=== PATIENT | male | born 1950 | race Caucasian/White ===

== ENCOUNTER → 2016-12-27 | Outpatient (CLI) | payer BC, OTHER ==
[~2016-12-27] MED LIST: ACTUNK PO; ASPEC81 PO; GLCPUNK PO; HMLI7525 SC; LISI5TAB3 PO; MULT-506 PO; SIMV20TA2 PO; [UNRECOGNIZED DRUG - CODE] TOP
--- NOTE | 2016-12-27 17:18 | DIAGNOSTIC IMAGING REPORT ---
LEFT HAND MIN 3 VIEWS ROUTINE CLINICAL HISTORY: Left hand pain status post trauma COMPARISON: None. DISCUSSION: The bony mineralization appears normal. There are no acute fractures. There are mild osteoarthritic changes. No radiopaque foreign bodies are visualized. There is no evidence for soft tissue swelling. IMPRESSION: Mild osteoarthritic change. No acute fractures. No radiopaque foreign bodies are visualized. Electronically signed by: Chuy Ortez M.D. 12/27/2016 5:16 PM Dictated Date/Time: 12/27/2016 5:16 PM
== END | disposition home or self-care (01) ==
LOC: C.RAD1850 16:56
PROVIDERS: ATTEND Nurse Practitioner
DX: S69.92XA Unspecified injury of left wrist, hand and finger(s), initial encounter (principal); X58.XXXA Exposure to other specified factors, initial encounter

== ENCOUNTER → 2017-06-18 | Outpatient (CLI) | payer BC, OTHER ==
[2017-06-18 09:51] LABS: ESTIMATED AVERAGE GLUCOSE 183 mg/dl; HA1C FLAG Normal (Normal)
[2017-06-18 10:04] LABS: ALT/SGPT 26 U/L (12-78); BLOOD UREA NITROGEN 17 mg/dl (7-18); BUN/CREATININE RATIO 16.6 (10-20); CALCIUM 9.1 mg/dl (8.5-10.1); CARBON DIOXIDE 26 mmol/L (21-32); CHLORIDE 107 mmol/L (98-107); CHOLESTEROL 139 mg/dl (0-200); GLUCOSE 121 mg/dl (70-99); POTASSIUM 4.2 mmol/L (3.5-5.1); SODIUM 140 mmol/L (136-145); TRIGLYCERIDES 235 mg/dl (0-150); VERY LOW DENSITY LIPOPROT CALC 47 mg/dl
[2017-06-18 10:13] LABS: ALKALINE PHOSPHATASE 81 U/L (45-117); AST/SGOT 14 U/L (15-37); CHOLESTEROL/HDL RATIO 3.5; HDL CHOLESTEROL 40 mg/dl; LDL CHOLESTEROL CALCULATED 52 mg/dl; THYROID STIMULATING HORMONE 0.039 uIu/ml (0.300-4.500)
[2017-06-18 10:17] LABS: RATIO 104.3 mcg/mg (0-30.0)
--- NOTE | 2017-06-24 09:08 | CODING QUERY MEDICAL NECESSITY ---
SUPPORTING DIAGNOSIS NEEDED Dr. Houston, A supporting diagnosis is required for the test/procedure performed on this patient in order for us to be reimbursed by the patient's insurance. Please provide a supporting diagnosis for the following test/procedure listed below next to the test name along with your signature. *If there is no additional diagnosis for this patient that would support the following test/procedure please document that below next to the test/procedure. Test(s)/Procedure(s) that require a supporting diagnosis: * ([id number]) VITAMIN D ASSAY DIAGNOSIS: * ([id number]) B12 VITAMIN LEVEL DIAGNOSIS: DATE OF SERVICE: 06/18/17 Provider Signature: Date: Thank you Link [facility] Information Management Once completed, please kindly fax back to [phone] For questions please call [phone]
== END | disposition home or self-care (01) ==
LOC: C.LAB1850 06:53
PROVIDERS: ATTEND Internal Medicine Endocrinology, Diabetes & Metabolism
DX: E11.65 Type 2 diabetes mellitus with hyperglycemia (principal); Z79.4 Long term (current) use of insulin

== ENCOUNTER → 2017-10-19 | Outpatient (CLI) | payer OTHER, MEDICARE ==
[2017-10-19 10:03] LABS: ESTIMATED AVERAGE GLUCOSE 249 mg/dl; HA1C FLAG Normal (Normal)
[2017-10-19 10:17] LABS: ALT/SGPT 30 U/L (12-78); AST/SGOT 15 U/L (15-37); BLOOD UREA NITROGEN 21 mg/dl (7-18); BUN/CREATININE RATIO 20.8 (10-20); CALCIUM 8.8 mg/dl (8.5-10.1); CARBON DIOXIDE 26 mmol/L (21-32); CHLORIDE 105 mmol/L (98-107); CREATININE 1.01 mg/dl (0.60-1.40); GLUCOSE 125 mg/dl (70-99); SODIUM 136 mmol/L (136-145)
[2017-10-19 10:23] LABS: ALB/GLOB RATIO 0.9 (0.9-2); ALKALINE PHOSPHATASE 78 U/L (45-117); CHOLESTEROL 144 mg/dl (0-200); CHOLESTEROL/HDL RATIO 3.9; HDL CHOLESTEROL 37 mg/dl; LDL CHOLESTEROL CALCULATED 66 mg/dl; TRIGLYCERIDES 207 mg/dl (0-150); VERY LOW DENSITY LIPOPROT CALC 41 mg/dl
== END | disposition home or self-care (01) ==
LOC: C.LAB 09:14
PROVIDERS: ATTEND Nurse Practitioner
DX: E11.9 Type 2 diabetes mellitus without complications (principal); Z12.5 Encounter for screening for malignant neoplasm of prostate

== ENCOUNTER → 2017-12-23 | Outpatient (CLI) | payer OTHER, MEDICARE ==
--- NOTE | 2017-12-23 12:41 | DIAGNOSTIC IMAGING REPORT ---
CHEST 2 VIEWS ROUTINE CLINICAL HISTORY: J92.0 Pleural plaque with presence of [id number] COMPARISON STUDY: No previous studies for comparison. FINDINGS: The cardiac and mediastinal contours remain stable. There is no failure. There is no focal pulmonary consolidation. Subtle left-sided pleural plaques are suspected. There are no pleural effusions.[ IMPRESSION: Subtle left-sided pleural plaques are suspected. No active disease in the chest. Electronically signed by: Chuy Ortez M.D. 12/23/2017 12:39 PM Dictated Date/Time: 12/23/2017 12:38 PM
== END | disposition home or self-care (01) ==
LOC: C.RAD1850 12:12
PROVIDERS: ATTEND Internal Medicine Pulmonary Disease
DX: J92.0 Pleural plaque with presence of asbestos (principal)

== ENCOUNTER 2018-03-08 16:40 | Emergency (ER) | payer OTHER, MEDICARE ==
[~2018-03-08] VITALS: Ht 172.7 cm; Wt 91.5 kg
[2018-03-08 16:45] VITALS: TEMP 36.7; Ht 172.7 cm; Wt 91.5 kg
--- NOTE | 2018-03-08 17:24 | EMERGENCY ROOM VISIT NOTE ---
ED Visit Note First contact with patient: 16:59 CHIEF COMPLAINT: Tick bite HISTORY OF PRESENT ILLNESS: This 67-year-old male patient noticed a tick embedded in the abdomen approximately 1 hour ago. Patient states that he was working outside this morning, laying on the ground in the grass, he believes this may be when he got exposed to the tick. He is certain take is only been on for a few hours and was not there yesterday. He did not attempt to remove the tick and it is still attached. He has noticed a small amount of redness around the tick bite. He denies any headache, rash, fevers/chills, or joint pain. REVIEW OF SYSTEMS: A complete 6 point review of systems was reviewed with the patient with pertinent positives and negatives as per history of present illness. All else were negative. PMH: The patient is healthy; there is no significant medical or surgical history. SOCIAL HISTORY: Patient lives at home. Non-smoker, occasional alcohol use. PHYSICAL EXAM: Vital Signs: Reviewed Nurse's notes. There is a small zone of inflammation but no ecchymosis or induration around the tick. The skin is otherwise clear. NEUROLOGICAL: Alert and cooperative. Sensory and motor functions grossly intact. EMERGENCY DEPARTMENT COURSE: I examined the patient. He is noted to have an attached tick on his left lower abdomen. There is no evidence of cellulitis. Using a tick twister, the tick was easily and fully removed from the patient's skin and discarded. The patient was provided with the tick twister. The patient was educated regarding signs and symptoms of infection and Lyme disease to monitor for, was encouraged to follow-up with his PCP as needed. Patient was discharged home in stable condition and ambulatory. Current/Historical Medications Scheduled Aspirin Enteric Coated (Ecotrin Or Generic *), 81 MG PO DAILY Fluocinolone Acet 0.025% (Synalar 0.025% *), 1 GM TOP TID PRN Insulin Lispro 75/25 (Humalog Mix 75/25), 47 SC am Insulin Lispro 75/25 (Humalog Mix 75/25), 47 SC pm Lisinopril (Zestril), 5 MG PO DAILY Metformin HCL (Glucophage Unknown Dose), 500 MG PO DAILY Multivitamin (Multivitamin), 1 TAB PO DAILY Pioglitazone (Actos Unknown Dose *), 30 MG PO DAILY Simvastatin (Zocor), 20 MG PO QPM Allergies Coded Allergies: Amoxicillin (Verified Allergy, Intermediate, HIVES, 10/23/13) Clavulanic Acid (Verified Allergy, Intermediate, HIVES, 10/23/13) Uncoded Allergies: PCN (Allergy, Unknown, hives, 09/27/15) Vital Signs Date Time Temp Pulse Resp B/P (MAP) Pulse Ox O2 Delivery O2 Flow Rate FiO2 03/08/18 17:47 69 16 107/69 97 03/08/18 16:45 36.7 75 20 127/76 96 Room Air Departure Information Impression Primary Impression: Tick bite Dispostion Home / Self-Care Condition GOOD Referrals Vonda Chahal, C.R.N.P. (PCP) Patient Instructions ED Bite Tick No Abx Tx, ED Facts Tick, My [facility] Additional Instructions You have been evaluated and treated in the emergency department today for your tick bite. Keep the area clean. Monitor for any signs of infection, including increasing pain, redness, swelling, pus drainage, streaking, fevers or chills. Please follow-up with your primary care provider as needed, especially if you would develop any symptoms of headaches, body aches, joint pain, unusual rash, fever/chills, or for any other concerns. Problem Qualifiers Primary Impression: Tick bite Encounter type: initial encounter Qualified Codes: W57.XXXA - Bitten or stung by nonvenomous insect and other nonvenomous arthropods, initial encounter
[2018-03-08 17:47] VITALS: BP 107/69; PULSE 69; O2SAT 97
== END 2018-03-08 17:48 | disposition home or self-care (01) ==
LOC: C.EDB 16:42 → C.EDD 17:48
DX: S30.861A Insect bite (nonvenomous) of abdominal wall, initial encounter (principal); W57.XXXA Bitten or stung by nonvenomous insect and other nonvenomous arthropods, initial encounter; Y92.017 Garden or yard in single-family (private) house as the place of occurrence of the external cause; Z79.4 Long term (current) use of insulin; Z79.899 Other long term (current) drug therapy; Z88.1 Allergy status to other antibiotic agents; Z88.8 Allergy status to other drugs, medicaments and biological substances; Z88.0 Allergy status to penicillin

== ENCOUNTER → 2018-06-13 | Outpatient (CLI) | payer OTHER, MEDICARE ==
[2018-06-13 12:59] LABS: CREATININE RANDOM URINE 31.9 mg/dl
[2018-06-18 15:37] LABS: TSI <89 % baseline (<140)
== END | disposition home or self-care (01) ==
LOC: C.LAB1850 11:13
PROVIDERS: ATTEND Physician Assistant
DX: R79.89 Other specified abnormal findings of blood chemistry (principal); R80.9 Proteinuria, unspecified

== ENCOUNTER 2019-12-18 17:11 | Observation (INO) ==
--- NOTE | 2019-12-18 17:54 | XRay Report ---
XR chest 1V portable CLINICAL HISTORY: Atypical chest pain COMPARISON STUDY: December 23, 2017 FINDINGS: There are postsurgical changes of midline sternotomy. The heart is borderline enlarged. The re is no failure. There is no focal pulmonary consolidation. There are no pleural effusions. There ar e postsurgical changes involving the right shoulder. Arthritic changes involve both shoulders. There is mild stable left-sided pleural thickening superiorly.[ IMPRESSION: No active disease in the chest. ACT 112: Negative or not required by law. Electronically signed by: Chuy Ortez M.D. 12/18/2019 5:52 PM
[2019-12-18 18:02] LABS: Basophils # (auto) 0.05 K/uL (0-0.2); Basophils % (auto) 0.5 %; Eosinophils # (auto) 0.22 K/uL (0-0.5); Eosinophils % (auto) 2.3 %; Hematocrit (blood only) 32.2 % (42-52); Hemoglobin 10.8 g/dL (14.0-18.0); Immature Granulocytes # (auto) 0.02 K/uL (0.00-0.02); Immature Granulocytes % (auto) 0.2 %; Lymphocytes # (auto) 1.54 K/uL (1.2-3.4); Lymphocytes % (auto) 16.3 %; Mean Corpuscular Hgb Conc 33.5 g/dL (32-36); Mean Corpuscular Volume 83.4 fL (80-100); Mean Platelet Volume 8.8 fL (7.4-10.4); Monocytes # (auto) 0.78 K/uL (0.11-0.59); Monocytes % (auto) 8.2 %; Neutrophils # (auto) 6.85 K/uL (1.4-6.5); Neutrophils % (auto) 72.5 %; Platelet Count 656 K/uL (130-400); RDW Coefficient of Variation 14.6 % (11.5-14.5); RDW Standard Deviation 44.4 fL (36.4-46.3); Red Blood Count 3.86 M/uL (4.7-6.1); White Blood Count 9.46 K/uL (4.8-10.8)
[2019-12-18 18:16] LABS: Partial Thromboplastin Time 26.9 Seconds (21.0-31.0); Prothrombin Time 10.5 Seconds (9.0-12.0)
[2019-12-18 18:19] LABS: Albumin Level 3.4 gm/dl (3.4-5.0); BUN Creatinine Ratio 19.5 (10-20); Calcium 9.6 mg/dl (8.5-10.1); Creatinine Clr Calc Pharmacy 55.4 ml/min; Est GFR (African American) 70.6; Est GFR (Non-African American) 60.9
[2019-12-18 18:24] LABS: Albumin Globulin Ratio 0.8 (0.9-2); Bilirubin,Total 0.3 mg/dl (0.2-1); Globulin 4.4 gm/dl (2.5-4.0); Total Protein 7.8 gm/dl (6.4-8.2); Troponin I 0.025 ng/ml (0-0.045)
--- NOTE | 2019-12-18 18:35 | Ultrasound Report ---
ULTRASOUND RIGHT LOWER EXTREMITY VENOUS CLINICAL HISTORY: Right leg swelling. COMPARISON STUDY: No priors. TECHNIQUE: Real-time, grayscale, and color Doppler sonography of the deep veins of the right lower ex tremity was performed from the inguinal crease to the calf. Compression and augmentation were utilize d. FINDINGS: There is no sonographic evidence of deep venous thrombosis identified in the right lower ex tremity. The common femoral, superficial femoral, and popliteal veins are patent and normally shannan sible. The greater saphenous vein and the profunda femoris vein at the junction with the common femor al vein are clear. The visualized calf veins are patent. IMPRESSION: There is no sonographic evidence of deep venous thrombosis identified in the right lower extremity. ACT 112: Negative or not required by law. Electronically signed by: Frank Sears M.D. 12/18/2019 6:34 PM
--- NOTE | 2019-12-18 20:16 | Emergency Department Note ---
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: chest Radiation: non-radiation Severity: mild and similar to prior episodes (before cardiac cath in November) Pain Consistency: + now resolved Quality: + aching Associated symptoms: + denies other symptoms (chest tightness/pressure, feeling near syncope, ), + chest pain, + shortness of breath ("heavy breathing") and + other (nausea, arndt skin appearance, dizziness, leg pain and swelling); no diaphoresis and no syncope The patient is a 69 year old male with a history of s/p CABG x4 (performed at [facility] 2 weeks ago), cardiac catheterization, pleural plaque due to asbestos exposure, HTN, DM2, who presents to the Emergency Room for a cardiac assessment. The patient began to experience a slight aching chest pain today "not tightness or pressure" associated with shortness of breath "heavy breathing", nausea, and a arndt skin appearance. He admits that the pain did not radiate into his neck or arms. Additionally he reports an episode of dizziness today but did not pass out nor did he feel near syncope. He explains that he experienced similar chest pain in November associated with SOB and dizziness before he had his cardiac catheterization done. The patient also complains of recent right leg pain and swelling. Currently, he states that his chest pain has resolved. He denies diaphoresis and offers no further concerns at this time. Home Medications Home Medications Medication Instructions Recorded Confirmed Type aspirin 81 mg tablet,delayed 81 mg PO QAM 05/26/19 12/18/19 History release cholecalciferol (vitamin D3) 25 1,000 units PO HS cap 05/26/19 12/18/19 History mcg (1,000 unit) capsule multivitamin with iron 1 tab PO QAM 05/26/19 12/18/19 History omega-3 fatty acids 1,000 mg 1,000 mg PO HS 05/26/19 12/18/19 History capsule omeprazole 40 mg capsule,delayed 40 mg PO QAM 05/26/19 12/18/19 History release sumatriptan succinate 100 mg tablet 100 mg PO Q2H PRN 05/26/19 12/18/19 History topiramate 50 mg tablet 50 mg PO BID 05/26/19 12/18/19 History venlafaxine 150 mg 150 mg PO QAM 05/26/19 12/18/19 History capsule,extended release 24 hr insulin NPH-regular 70-30 U-100 See Rx Instructions SQ HS ml 08/07/19 12/18/19 History insulin 100 unit/mL subcutaneous pen metformin 1,000 mg tablet 1,000 mg PO TID 08/07/19 12/18/19 History cyclobenzaprine 30 mg PO DAILY PRN 11/05/19 12/18/19 History methimazole 5 mg PO DAILY 11/05/19 12/18/19 History rosuvastatin 20 mg PO DAILY 11/05/19 12/18/19 History metoprolol tartrate 25 mg tablet 25 mg PO BID #20 tab 11/07/19 12/18/19 Rx nitroglycerin 0.4 mg sublingual 0.4 mg SUBLINGUAL Q5M PRN 30 Days 11/07/19 12/18/19 Rx tablet #25 tab amiodarone 200 mg PO DAILY 12/18/19 12/18/19 History famotidine 20 mg PO BID 12/18/19 12/18/19 History furosemide 40 mg PO DAILY 12/18/19 12/18/19 History insulin glargine [Lantus U-100 30 unit SUBCUT BID 12/18/19 12/18/19 History Insulin] potassium chloride 10 meq PO DAILY 12/18/19 12/18/19 History tamsulosin 0.4 mg PO DAILY 12/18/19 12/18/19 History Allergies Allergy/AdvReac Type Severity Reaction Status Date / Time amoxicillin Allergy Intermediate HIVES Verified 12/18/19 18:58 clavulanic acid Allergy Intermediate HIVES Verified 12/18/19 18:58 Penicillins Allergy Unknown Verified 12/18/19 18:58 PCN Allergy Unknown hives Uncoded 12/18/19 18:58 Past Med/Surg History Medical History Complete tear of left rotator cuff Trigger finger Surgical History History of cardiac cath S/P appendectomy S/P CABG x 4 S/P rotator cuff repair Family History Other Cancer Diabetes Hyperthyroidism Social History Preferred Language: Amharic 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 and A total of 10 systems reviewed and were otherwise negative Physical Exam Vital Signs Vital Signs - 24 hr 12/18/19 17:12 12/18/19 17:16 12/18/19 17:22 Temperature 37.0 C Temperature Source Oral Pulse Rate 78 Pulse Rate from SpO2 Sensor 80 80 Respiratory Rate 21 Respiratory Effort / Characteristics Non-Labored Respiratory Depth Normal Respiratory Pattern Regular Blood Pressure 123/67 123/67 Blood Pressure Mean 85 80 Blood Pressure Position Lying Pulse Oximetry 98 99 97 Oxygen Delivery Method Room Air Sepsis Recent Fever Within 48 Hours No Sepsis New/Unexplained Change in Mental Status No Sepsis Action Taken by Nursing No Action Required 12/18/19 17:30 12/18/19 18:00 12/18/19 18:34 Temperature Temperature Source Pulse Rate 79 81 83 Pulse Rate from SpO2 Sensor 79 83 Respiratory Rate 17 16 Respiratory Effort / Characteristics Respiratory Depth Respiratory Pattern Blood Pressure Blood Pressure Mean Blood Pressure Position Pulse Oximetry 96 96 Oxygen Delivery Method Sepsis Recent Fever Within 48 Hours Sepsis New/Unexplained Change in Mental Status Sepsis Action Taken by Nursing 12/18/19 19:18 Temperature Temperature Source Pulse Rate 79 Pulse Rate from SpO2 Sensor Respiratory Rate 18 Respiratory Effort / Characteristics Respiratory Depth Respiratory Pattern Blood Pressure 101/66 Blood Pressure Mean 77 Blood Pressure Position Pulse Oximetry 9 L Oxygen Delivery Method Room Air Sepsis Recent Fever Within 48 Hours Sepsis New/Unexplained Change in Mental Status Sepsis Action Taken by Nursing Constitutional: Vital signs reviewed and showed normotension. Eyes: Pupils are equal round reactive to light. Conjunctiva are noninjected. ENT: Pharynx is clear without erythema or exudate. Mucous membranes are moist. Neck supple without meningeal signs. Respiratory: Clear to auscultation bilaterally. Breath sounds are equal bi laterally. Cardiovascular: Regular rate and rhythm. No rubs or gallops. GI: Soft, nondistended and nontender. Bowel sounds are present. Musculoskeletal: Edema to the RLE with mild tenderness. No infection to the incision. Integumentary: No cyanosis. Neurological: The patient is awake and alert. No focal deficits. Psychiatric: Normal affect. Course Course 172: Past medical records reviewed. The patient was evaluated in room B02. A complete history and physical exam was performed. 175: The patient's labs were sent. 184: I checked on the patient and he is agreeable to hospitalization and does not have any recurrent chest pain. I will page Dr. Swanson, [facility]. 1926: I spoke with Dr. Swanson who will further evaluate the patient. Administered Medications Medical Decision Making Differential Diagnosis Differential diagnosis includes but is not limited to graft occlusion, MO, Ceferino's syndrome, pneumonia, PE, amongst others considered. Medical Records Attestation: I reviewed the patient's medical records. The patient had a cardiac catheterization performed on 11/06/19 and had severe multi vessel CAD. Home Medications Current Medication List: was personally reviewed by me Laboratory Data Attestation: I reviewed the patient's lab results. Result diagrams: 12/18/19 17:54 12/18/19 17:54 Lab Results 12/18/19 12/18/19 12/18/19 Range/Units 17:54 17:54 17:54 WBC 9.46 (4.8-10.8) K/uL RBC 3.86 L (4.7-6.1) M/uL Hgb 10.8 L (14.0-18.0) g/dL Hct 32.2 L (42-52) % MCV 83.4 (80-100) fL MCH 28.0 (25-34) pg MCHC 33.5 (32-36) g/dL RDW Std Deviation 44.4 (36.4-46.3) fL RDW Coeff of Kate 14.6 H (11.5-14.5) % Plt Count 656 H (130-400) K/uL MPV 8.8 (7.4-10.4) fL Immature Gran % (Auto) 0.2 % Neut % (Auto) 72.5 % Lymph % (Auto) 16.3 % [place] % (Auto) 8.2 % Eos % (Auto) 2.3 % Baso % (Auto) 0.5 % Immature Gran # (Auto) 0.02 (0.00-0.02) K/uL Neut # (Auto) 6.85 H (1.4-6.5) K/uL Lymph # (Auto) 1.54 (1.2-3.4) K/uL [place] # (Auto) 0.78 H (0.11-0.59) K/uL Eos # (Auto) 0.22 (0-0.5) K/uL Baso # (Auto) 0.05 (0-0.2) K/uL PT 10.5 (9.0-12.0) Seconds INR 1.0 (0.9-1.1) APTT 26.9 (21.0-31.0) Seconds PTT Ratio 1.0 Sodium 137 (136-145) mmol/L Potassium 4.0 (3.5-5.1) mmol/L Chloride 105 (98-107) mmol/L Carbon Dioxide 22 (21-32) mmol/L Anion Gap 10.0 (3-11) BUN 23 H (7-18) mg/dl Creatinine 1.20 (0.6-1.4) mg/dl Est Cr Clr Drug Dosing 55.4 ml/min Est GFR ( Amer) 70.6 Est GFR (Non-Af Amer) 60.9 BUN/Creatinine Ratio 19.5 (10-20) Glucose 208 H (70-99) mg/dl Calcium 9.6 (8.5-10.1) mg/dl Total Bilirubin 0.3 (0.2-1) mg/dl AST 23 (15-37) U/L ALT 23 (12-78) U/L Alkaline Phosphatase 117 (45-117) U/L Troponin I 0.025 (0-0.045) ng/ml Total Protein 7.8 (6.4-8.2) gm/dl Albumin 3.4 (3.4-5.0) gm/dl Globulin 4.4 H (2.5-4.0) gm/dl Albumin/Globulin Ratio 0.8 L (0.9-2) Imaging Data Radiologist's Impression: Radiology results as stated below per my review and the radiologist's interpretation: XR chest 1V portable CLINICAL HISTORY: Atypical chest pain COMPARISON STUDY: December 23, 2017 FINDINGS: There are postsurgical changes of midline sternotomy. The heart is bor derline enlarged. There is no failure. There is no focal pulmonary consolidation. There are no pleural effusions. There are postsurgical changes involving the right shoulder. Arthritic changes involve both shoulders. There is mild stable left-sided pleural thickening superiorly.[ IMPRESSION: No active disease in the chest. ACT 112: Negative or not required by law. Electronically signed by: Chuy Ortez M.D. 12/18/2019 5:52 PM ULTRASOUND RIGHT LOWER EXTREMITY VENOUS CLINICAL HISTORY: Right leg swelling. COMPARISON STUDY: No priors. TECHNIQUE: Real-time, grayscale, and color Doppler sonography of the deep veins of the right lower extremity was performed from the inguinal crease to the calf. Compression and augmentation were utilized. FINDINGS: There is no sonographic evidence of deep venous thrombosis identified in the right lower extremity. The common femoral, superficial femoral, and popliteal veins are patent and normally compressible. The greater saphenous vein and the profunda femoris vein at the junction with the common femoral vein are clear. The visualized calf veins are patent. IMPRESSION: There is no sonographic evidence of deep venous thrombosis identified in the right lower extremity. ACT 112: Negative or not required by law. Electronically signed by: Frank Sears M.D. 12/18/2019 6:34 PM ECG Data Attestation: I personally reviewed and interpreted this ECG as follows: Indication: + chest pain Rate (beats per minute): 77 Rhythm: + normal sinus ECG ST segments: + ST elevation (septally, concerning for Wellen's sign) and + T-wave inversions (leads 1 and AVL) Comparison ECG Date: from (05/26/19) Change: the following changes noted (changes are new) Additional Comments: REPEAT EKG performed in the ED today: * Normal sinus rhythm at 78 bpm * Persistent TWI in 1 and AVL as wel as V1, v2, and V3 concerning for Wellen's sign Blood Pressure Blood Pressure Findings: Normal blood pressure Blood Pressure Disposition: further management by hospitalist [facility] Narrative I did evaluate the patient as noted above. The patient is presenting with chest pain and pallor while bringing his into the emergency department for assessment. He was advised to check in. He recently had quadruple bypass. IV access was established. The patient was placed on a continuous engine monitor. I did order and personally review the patient's 12-lead EKG as described above. This twelve-lead EKG is concerning for T wave inversions in the high lateral leads as well as a septal/anterior leads. I did repeat this twelve-lead EKG which showed similar findings as noted above. The patient is currently chest pain-free. I did order and personally reviewed the images of the patient's chest x-ray as described above. His chest x-ray does not show any signs of pneumonia. I did order and review the patient's blood work as noted in the electronic medical record. The white count is not elevated. He is anemic. Troponin is negative. He does have hyperglycemia. I did order a Doppler ultrasound of the right lower extremity.. I did review the images myself as well as the radiology report as described above. There is no evidence of DVT. I did discuss the test results with the patient. On reexamination patient is asymptomatic. I did recommend hospitalization for further evaluation and repeat cardiac biomarkers. I did discuss the case with the hospitalist and showcase maker. Impression & Plan Acute chest pain, Abnormal EKG, Right leg swelling, Anemia, Acute hyperglycemia Discharge Plan Visit Data Chief Complaint: Cardiac Assessment Stated Complaint: CARDIAC ED Provider: Celso Vitale Discharge Problem: Acute chest pain, Abnormal EKG, Right leg swelling, Anemia, Acute hyperglycemia Patient Disposition: Being Evaluated by Hospitalist Forms Stand Alone Forms: My [facility] Prescriptions Prescriptions: No Action metoprolol tartrate 25 mg tablet 25 mg PO BID Qty: 20 RF: 0 nitroglycerin [Nitrostat] 0.4 mg tablet, sublingual 0.4 mg sublingual Q5M PRN (Reason: chest pain) 30 Days Qty: 25 RF: 0 aspirin [Adult Aspirin Regimen] 81 mg tablet,delayed release (DR/EC) 81 mg PO QAM RF: 0 venlafaxine [Effexor XR] 150 mg capsule,extended release 24hr 150 mg PO QAM RF: 0 omega-3 fatty acids [Fish Oil Concentrate] 1,000 mg capsule 1,000 mg PO HS RF: 0 multivitamin with iron tablet 1 tab PO QAM RF: 0 omeprazole 40 mg capsule,delayed release(DR/EC) 40 mg PO QAM RF: 0 sumatriptan succinate 100 mg tablet 100 mg PO Q2H PRN (Reason: Migraine Headache) RF: 0 topiramate 50 mg tablet 50 mg PO BID RF: 0 cholecalciferol (vitamin D3) 1,000 unit capsule 1,000 units PO HS RF: 0 insulin NPH and regular human 100 unit/mL (70-30) insulin pen See Rx Instructions SQ HS RF: 0 metformin 1,000 mg tablet 1,000 mg PO TID RF: 0 methimazole 5 mg Tablet 5 mg PO DAILY RF: 0 rosuvastatin 20 mg Tablet 20 mg PO DAILY RF: 0 cyclobenzaprine 30 mg Capsule,Extended Release 24hr 30 mg PO DAILY PRN (Reason: Muscle Spasm) RF: 0 furosemide 40 mg tablet 40 mg PO DAILY RF: 0 amiodarone 200 mg tablet 200 mg PO DAILY RF: 0 famotidine 20 mg tablet 20 mg PO BID RF: 0 tamsulosin 0.4 mg capsule 0.4 mg PO DAILY RF: 0 potassium chloride 10 mEq tablet,ER particles/crystals 10 meq PO DAILY RF: 0 Lantus U-100 Insulin 100 unit/mL solution 30 unit SUBCUT BID RF: 0 Referrals Referrals: Vonda Chahal CRNP [Primary Care Provider] - Discharge Problem: Anemia Qualifiers: Anemia type: unspecified type Qualified Code(s): D64.9 - Anemia, unspecified The scribe's documentation has been prepared under my direction and personally reviewed by me in its entirety. I confirm that the note above accurately reflects all work, treatment, procedures, and medical decision making performed by me.
--- NOTE | 2019-12-18 20:33 | History & Physical Report ---
Date of Service December 18, 2019 Assessment & Plan (1) Acute chest pain: Mr. Mccarthy is a 69yo male with a Hx of CABGx4 discharged 2 weeks ago, stable angina, HTN, HLD, Hyperthyroidism, GERD, Diabetes and Anxiety/Depression who presented with chest pain and SOB and was admitted for AC S rule-out. Chest pain/ACS rule out -Pt with chest pain and SOB after had syncopal episode this evening -Currently chest pain free, required no medications -EKG on admission with inverted t waves in lateral leads, NSR qtc 420 -Trops negative x1, will trend q6h -Echo ordered; last from chart review is 2015 with noted EF-50-55%, E/A reversal, normal chamber sizes and trace MR and TR, no signifcant aortic stenosis -continue home nitroglycerin 0.4mg tab PRN -will continue to monitor on telemetry overnight Hx of CABGx4 -Pt with quadruple bypass surgery on Dec 02 at [facility], sobeida christensen -Recently discharged for about 2 weeks now -continue home metoprolol tartrate 25mg BID -continue home amiodarone 200mg daily -continue home aspirin -continue home rosuvastatin 20mg daily -continue home furosemide 40mg daily Right Leg Swelling -Pt with minor swelling at right leg graft sight, no significant erythema or warmth -Denies fevers, chills, or noted drainage from surgical site, WBC normal -No concern currently for infection -Doppler US of right lower extremity with no evidence of DVT -inpt wound nurse consult placed DMII -hgbA1c pending; last noted in chart from 12/2018 was 9.2 -holding home insulin and metformin 1000mg TID -ISS while hospitalized HTN -continue home metoprolol 25mg BID HLD -continue home rosuvastatin 20mg daily Hyperthyroidism -continue home methimazole 5mg daily GERD -continue home omeprazole 40mg and famotidine 20mg BID Migraines -continue home sumatriptan 100mg and topiramate 50mg BID Anxiety/Depression -continue home venlafaxine 150mg daily Muscle Spasms -continue home cyclobenzaprine 30mg daily PRN BPH -continue home tamsulosin 0.4mg daily FEN/GI: Heart healthy, low sodium DVT prophylaxis: Lovenox SQ CODE STATUS: full Dispo: Obs on PCU/tele History of Present Illness Primary Care Provider: JANKI Nunez Mr. Mccarthy is a 69yo male with a Hx of CABGx4 discharged 2 weeks ago, stable angina, HTN, HLD, Hyperthyroidism, GERD, Diabetes and Anxiety/Depression who presented with chest pain and SOB and was admitted for ACS rule-out. Pt sates he was at [place] this evening with his when she had a hypoglycemic episode and fainted. He drove himself to the ED after she was transported there by ambulance, and upon arrival was noted to be pale while holding his chest and breathing deeply. States he had nonradiating pain that he describes as discomfort associated with SOB, headache and an episode of dizziness prior today. His chest pain has since resolved. Of note he had quadruple bypass surgery on dec 02 at [facility] and was discharged about 2 weeks ago. Denies changes to vision, cough, runny nose, sore throat, palpitations, abdominal pain, diarrhea or constipation, swelling in hands or numbness or tingling anywhere. Does say his right leg is swollen and painful at the graft site. Allergies Allergy/AdvReac Type Severity Reaction Status Date / Time amoxicillin Allergy Intermediate HIVES Verified 12/18/19 18:58 clavulanic acid Allergy Intermediate HIVES Verified 12/18/19 18:58 Penicillins Allergy Unknown Verified 12/18/19 18:58 Home Medications Home Medications Medication Instructions Recorded Confirmed Type aspirin 81 mg tablet,delayed 81 mg PO QAM 05/26/19 12/18/19 History release cholecalciferol (vitamin D3) 25 1,000 units PO HS cap 05/26/19 12/18/19 History mcg (1,000 unit) capsule multivitamin with iron 1 tab PO QAM 05/26/19 12/18/19 History omega-3 fatty acids 1,000 mg 1,000 mg PO HS 05/26/19 12/18/19 History capsule omeprazole 40 mg capsule,delayed 40 mg PO QAM 05/26/19 12/18/19 History release sumatriptan succinate 100 mg tablet 100 mg PO Q2H PRN 05/26/19 12/18/19 History topiramate 50 mg tablet 50 mg PO BID 05/26/19 12/18/19 History venlafaxine 150 mg 150 mg PO QAM 05/26/19 12/18/19 History capsule,extended release 24 hr insulin NPH-regular 70-30 U-100 See Rx Instructions SQ HS ml 08/07/19 12/18/19 History insulin 100 unit/mL subcutaneous pen metformin 1,000 mg tablet 1,000 mg PO TID 08/07/19 12/18/19 History cyclobenzaprine 30 mg PO DAILY PRN 11/05/19 12/18/19 History methimazole 5 mg PO DAILY 11/05/19 12/18/19 History rosuvastatin 20 mg PO DAILY 11/05/19 12/18/19 History metoprolol tartrate 25 mg tablet 25 mg PO BID #20 tab 11/07/19 12/18/19 Rx nitroglycerin 0.4 mg sublingual 0.4 mg SUBLINGUAL Q5M PRN 30 Days 11/07/19 12/18/19 Rx tablet #25 tab amiodarone 200 mg PO DAILY 12/18/19 12/18/19 History famotidine 20 mg PO BID 12/18/19 12/18/19 History furosemide 40 mg PO DAILY 12/18/19 12/18/19 History insulin glargine [Lantus U-100 30 unit SUBCUT BID 12/18/19 12/18/19 History Insulin] potassium chloride 10 meq PO DAILY 12/18/19 12/18/19 History tamsulosin 0.4 mg PO DAILY 12/18/19 12/18/19 History Past Med/Surg History Medical History Complete tear of left rotator cuff Trigger finger Surgical History History of cardiac cath S/P appendectomy S/P CABG x 4 S/P rotator cuff repair Family History Other Cancer Diabetes Hyperthyroidism Social History Preferred Language: Maori Communication Ability: Effective Emergency Room Rn Required: No Beliefs That Will Affect Care: None marital status: Current Living Situation: Spouse current occupational status: retired Other Information That Helps Us Care for You: No Feels Safe at Home: Yes Safety Concerns: Feels Safe At This Time Smoking Status: Former smoker Hx Alcohol Use: Yes Alcohol type: hard liquor Hx Substance Use: No Physical Activity Frequency: Does not Exercise Review of Systems Review of Systems: All systems reviewed & are unremarkable except as noted in HPI & below Constitutional: no fever, no chills and no sweats Eyes: no worsening vision Ear, Nose, Mouth, Throat: no nasal discharge and no sore throat Respiratory: no cough and no dyspnea (at time of exam) Cardiovascular: no chest pain (at time of exam) and no palpitations Gastrointestinal: no abdominal pain, no constipation and no diarrhea/loose stools Genitourinary: no dysuria Musculoskeletal: no body aches Neurologic: + dizziness and + headache(s); no syncope Psychiatric: + depression and + anxiety Allergy / Immunological: no cough Physical Exam Physical Exam: General: Alert, oriented. No acute distress, resting comfortably Skin: surgical scars noted on chest and right leg Psych: Appropriate mood and affect Neuro: No gross deficits HEENT: NC/AT, PERRLA, EOMI, oropharynx moist. Chest: Nontender to palpation. CV: RRR, Normal s1, s2. Blowing murmur appreciated Resp: Breath sounds with faint crackles at right base, no increased effort of breathing. Abdomen: Soft, nontender, nondistended. No guarding. Extremities: Trace edema in lower extremities bilaterally, DP palpated on right foot. Right inner leg and thigh with long surgical scar, dried blood, no noted pus drainage, no redness, no warmth. Results & Data Vital Signs (Past 12 Hours) Vital Signs Temp Pulse Resp BP Pulse Ox 12/18/19 19:18 79 18 101/66 9 L 12/18/19 18:34 83 16 96 12/18/19 18:00 81 12/18/19 17:30 79 17 96 12/18/19 17:22 97 12/18/19 17:16 123/67 99 12/18/19 17:12 37.0 C 78 21 123/67 98 Supervising Physician Co-Signing Physician Notes Patient was seen and examined by me personally. I reviewed the chart, the orders and discussed the case in detail with Dr. Sofie Sosa MD . I read this H&P and agree with its contents to entirety. Resident Activity Tracking Resident Involvement: Resident Care Provided Care Provided: [facility]
[2019-12-18] MEDS ORDERED: OMEGA-3 (PURIFIED FISH OIL) 1 GM CAP PO SCH (21:30)
[2019-12-18] MEDS ORDERED: GLUCAGON FOR INJ 1 MG VIAL SQ PRN (21:35)
[2019-12-18] MEDS ORDERED: SUMAtriptan succinate 100 MG TAB PO PRN (21:35)
[2019-12-18] MEDS ORDERED: GLUCOSE 10 TABS/TUBE PO PRN (21:35)
[2019-12-18] MEDS ORDERED: GLUCOSE 40% GEL 15 GM TUBE PO PRN (21:35)
[2019-12-18] MEDS ORDERED: DEXTROSE 50% 50 ML SYRINGE IV PRN (21:35)
[2019-12-18] MEDS ORDERED: CARBOHYDRATES FOR HYPOGLYCEMIA PO PRN (21:35)
[2019-12-18] MEDS ORDERED: CHOLECALCIFEROL 1,000 UNITS 25 MCG TAB PO SCH (21:35)
[2019-12-18] MEDS ORDERED: NITROGLYCERIN SL 0.4 MG/TAB TAB SL PRN (21:35)
[2019-12-18] MEDS ORDERED: CYCLOBENZAPRINE HCL 10 MG TAB PO PRN (21:40)
[2019-12-18 21:57] LABS: Basophils # (auto) 0.05 K/uL (0-0.2); Basophils % (auto) 0.6 %; Eosinophils # (auto) 0.22 K/uL (0-0.5); Eosinophils % (auto) 2.8 %; Hematocrit (blood only) 29.8 % (42-52); Immature Granulocytes # (auto) 0.01 K/uL (0.00-0.02); Immature Granulocytes % (auto) 0.1 %; Lymphocytes # (auto) 1.89 K/uL (1.2-3.4); Lymphocytes % (auto) 23.9 %; Mean Corpuscular Hemoglobin 27.5 pg (25-34); Mean Corpuscular Hgb Conc 33.6 g/dL (32-36); Mean Corpuscular Volume 82.1 fL (80-100); Mean Platelet Volume 8.2 fL (7.4-10.4); Monocytes # (auto) 0.58 K/uL (0.11-0.59); Monocytes % (auto) 7.3 %; Neutrophils # (auto) 5.16 K/uL (1.4-6.5); Neutrophils % (auto) 65.3 %; Platelet Count 560 K/uL (130-400); RDW Coefficient of Variation 14.3 % (11.5-14.5); RDW Standard Deviation 43.3 fL (36.4-46.3); Red Blood Count 3.63 M/uL (4.7-6.1); White Blood Count 7.91 K/uL (4.8-10.8)
[2019-12-18] MEDS ORDERED: ENOXAPARIN INJ 40 MG/0.4 ML SYR SQ SCH (22:15)
[2019-12-18 22:18] LABS: BUN Creatinine Ratio 23.9 (10-20); Calcium 9.2 mg/dl (8.5-10.1); Creatinine Clr Calc Pharmacy 69.3 ml/min; Est GFR (African American) 81.1; Potassium 3.4 mmol/L (3.5-5.1); Troponin I 0.02 ng/ml (0-0.045)
[2019-12-18] MEDS: FAMOTIDINE 20 MG TAB PO SCH (22:40)
[2019-12-18] MEDS: METOPROLOL TARTRATE 25 MG TAB PO SCH (22:42)
[2019-12-18] MEDS: TOPIRAMATE 50 MG TAB PO SCH (22:42)
[2019-12-18] MEDS: INSULIN ASPART 100 UNITS/ML 3 ML PEN SC SCH (23:18)
--- NOTE | 2019-12-19 01:29 | Billing Data ---
Date of Service December 18, 2019 Coding Level of Care Code 89710 OBS Care - Level 3
[2019-12-19 06:43] LABS: Basophils # (auto) 0.06 K/uL (0-0.2); Basophils % (auto) 0.9 %; Eosinophils % (auto) 4.3 %; Hematocrit (blood only) 30.5 % (42-52); Hemoglobin 9.7 g/dL (14.0-18.0); Immature Granulocytes # (auto) 0.02 K/uL (0.00-0.02); Immature Granulocytes % (auto) 0.3 %; Lymphocytes # (auto) 1.46 K/uL (1.2-3.4); Lymphocytes % (auto) 20.8 %; Mean Corpuscular Hemoglobin 26.9 pg (25-34); Mean Corpuscular Hgb Conc 31.8 g/dL (32-36); Mean Corpuscular Volume 84.7 fL (80-100); Mean Platelet Volume 8.8 fL (7.4-10.4); Monocytes # (auto) 0.64 K/uL (0.11-0.59); Monocytes % (auto) 9.1 %; Neutrophils # (auto) 4.55 K/uL (1.4-6.5); Neutrophils % (auto) 64.6 %; Platelet Count 565 K/uL (130-400); RDW Coefficient of Variation 14.4 % (11.5-14.5); RDW Standard Deviation 44.3 fL (36.4-46.3); White Blood Count 7.03 K/uL (4.8-10.8)
[2019-12-19 06:53] LABS: Estimated Average Glucose 197 mg/dl; Hemoglobin A1C 8.5 % (4.5-5.6)
[2019-12-19 07:13] LABS: BUN Creatinine Ratio 22.4 (10-20); Calcium 9.2 mg/dl (8.5-10.1); Est GFR (African American) 85.9; Est GFR (Non-African American) 74.1; Potassium 3.5 mmol/L (3.5-5.1)
[2019-12-19] MEDS: TOPIRAMATE 50 MG TAB PO SCH (07:52)
[2019-12-19] MEDS: INSULIN ASPART 100 UNITS/ML 3 ML PEN SC SCH ×2 (07:53→12:06)
[2019-12-19] MEDS: FAMOTIDINE 20 MG TAB PO SCH (08:09)
[2019-12-19] MEDS ORDERED: ASPIRIN 81 MG ECTAB PO SCH (09:00)
[2019-12-19] MEDS ORDERED: TAMSULOSIN HCL 0.4 MG CAP PO SCH (09:00)
[2019-12-19] MEDS ORDERED: VENLAFAXINE HCL XR 150 MG CAPXR PO SCH (09:00)
[2019-12-19] MEDS ORDERED: POTASSIUM CHLORIDE 10 MEQ TABCR PO SCH (09:00)
[2019-12-19] MEDS ORDERED: FUROSEMIDE 40 MG TAB PO SCH (09:00)
[2019-12-19] MEDS ORDERED: AMIODARONE 200 MG TAB PO SCH (09:00)
[2019-12-19] MEDS ORDERED: PANTOprazole 40 MG TAB PO SCH (09:00)
[2019-12-19] MEDS ORDERED: methIMAzole 5 MG TABLET PO SCH (09:00)
[2019-12-19] MEDS ORDERED: CEROVITE ADV FORMULA TAB PO SCH (09:00)
[2019-12-19] MEDS ORDERED: ROSUVASTATIN CALCIUM 20 MG TAB PO SCH (09:00)
[2019-12-19 12:04] LABS: Hematocrit (blood only) 31.4 % (42-52); Hemoglobin 10.2 g/dL (14.0-18.0)
[2019-12-19] MEDS: METOPROLOL TARTRATE 25 MG TAB PO SCH (12:06)
--- NOTE | 2019-12-19 15:36 | Discharge Summary ---
Date of Service December 19, 2019 Admission HPI Per Admitting Provider Mr. Mccarthy is a 69yo male with a Hx of CABGx4 discharged 2 weeks ago, stable angina, HTN, HLD, Hyperthyroidism, GERD, Diabetes and Anxiety/Depression who presented with chest pain and SOB and was admitted for ACS rule-out. Pt sates he was at [place] this evening with his when she had a hypoglycemic episode and fainted. He drove himself to the ED after she was transported there by ambulance, and upon arrival was noted to be pale while holding his chest and breathing deeply. States he had nonradiating pain that he describes as discomfort associated with SOB, headache and an episode of dizziness prior today. His chest pain has since resolved. Of note he had quadruple bypass surgery on dec 02 at [facility] and was discharged about 2 weeks ago. Denies changes to vision, cough, runny nose, sore throat, palpitations, abdominal pain, diarrhea or constipation, swelling in hands or numbness or tingling anywhere. Does say his right leg is swollen and painful at the graft site. Admission Exam Per Admitting Provider General: Alert, oriented. No acute distress, resting comfortably Skin: surgical scars noted on chest and right leg Psych: Appropriate mood and affect Neuro: No gross deficits HEENT: NC/AT, PERRLA, EOMI, oropharynx moist. Chest: Nontender to palpation. CV: RRR, Normal s1, s2. Blowing murmur appreciated Resp: Breath sounds with faint crackles at right base, no increased effort of breathing. Abdomen: Soft, nontender, nondistended. No guarding. Extremities: Trace edema in lower extremities bilaterally, DP palpated on right foot. Right inner leg and thigh with long surgical scar, dried blood, no noted pus drainage, no redness, no warmth. Principal Diagnosis chest pain Discharge Exam Constitutional WD/WN, vitals as above Eyes + anicteric sclerae ENMT external ear and nose normal, oropharynx normal Neck normal visual inspection and trachea midline Respiratory normal respiratory effort, lungs clear to auscultation Cardiovascular Rate/Rhythm: regular rate and regular rhythm Heart Sounds: normal S1, normal S2 and + murmur (systolic ejection) Gastrointestinal (Abdomen) normal bowel sounds, soft, nontender, no hepatosplenomegaly Skin no rashes, warm and dry On R LE there is a healing incision consistent with graft site of recent CABG. Incision is tender; surrounding ecchymosis. No erythema or warmth. No open areas. + hematoma palpated on inner thigh Psychiatric A+Ox3, euthymic affect Orientation: cooperative Discharge Data Allergies Allergy/AdvReac Type Severity Reaction Status Date / Time amoxicillin Allergy Intermediate HIVES Verified 12/18/19 18:58 clavulanic acid Allergy Intermediate HIVES Verified 12/18/19 18:58 Penicillins Allergy Unknown Verified 12/18/19 18:58 Consultations 12/18/19 19:10 ED Decision to Admit Stat Ordered Studies 12/18/19 17:24 US venous doppler LE RT Stat Hospital Course (1) Acute chest pain: Mr. Mccarthy is a 69yo male who is status post 4 vessel CABG 2.5 weeks ago at [facility] who presented to [facility] with chest pain and SOB after his collapsed while they were out shopping. He was admitted for ACS rule-out. Chest pain/ACS rule out Chest pain spontaneously resolved without any intervention shortly after arriving at hospital. Troponins negative x 2. EKG with inverted T waves in lateral leads, otherwise without signs of acute ischemia. Echocardiogram was obtained which showed EF 55-60%, normal LV systolic function, no wall motion abnormalities, moderate aortic sclerosis, no significant aortic stenosis. He will be seeing his compliance aide at the [facility] on 12/23/19 and his clinical director from [facility] on 01/05/2020. Hx of recent 4 vessel CABG Pt with quadruple bypass surgery on Dec 02 at [facility]. We have asked him to reduce his metoprolol tartrate from 25mg BID to 12.5mg BID due to relative hypotension while in the hospital. Otherwise he should continue the following regimen: amiodarone 200mg daily, ASA 81mg, daily, rosuvastatin 20mg daily, furosemide 40mg daily. Right Leg Swelling Pt with minor swelling at right lower leg, consistent with graft site of recent CABG procedure. Doppler US of right lower extremity showed no evidence of DVT. Hospital team had no concerns for infection as there was o significant erythema, warmth, or open areas and WBC normal. Small hematoma was felt on medial aspect of R thigh- recommend he apply warm compresses for resolution. DMII hgbA1c 8.5 on admission, down from 9.2 in 12/2018. Advised patient to continue home regimen of Lantus insulin 30 units BID, + additional sliding scale as outlined by [facility] providers. He should also continue metformin 1000mg TID HTN -patient was hypotensive throughout hospital stay. continue metoprolol 12.5 mg BID HLD -continue home rosuvastatin 20mg daily Hyperthyroidism -continue home methimazole 5mg daily GERD -continue home omeprazole 40mg and famotidine 20mg BID Migraines -continue home sumatriptan 100mg and topiramate 50mg BID Anxiety/Depression -continue home venlafaxine 150mg daily Muscle Spasms -continue home cyclobenzaprine 30mg daily PRN BPH -continue home tamsulosin 0.4mg daily Total Time Total Time Spent Total Time Spent (In Minutes): see attending attestation Discharge Plan Discharge Items Patient Disposition: Home - Self-Care Reason For Visit: CHEST PAIN RULE OUT Discharge Diagnosis: chest pain Activity: Resume your previous activity Non-emergency contact: Primary Care Provider and Occupational Therapy Teacher Call non-emergency contact if: your pain is unusual for you Follow-up/Referrals: Vonda Chahal CRNP [Primary Care Provider] - Diet: Carb Consistent or DM2 and Heart Healthy Addtl Attending Provider Instructions: You were hospitalized at [facility] from 12/18/19 to 12/19/19 for evaluation of chest pain. The discomfort resolved spontaneously without any treatment. Troponin levels were drawn, were are markers of cardiac strain, and were negative. EKG showed non-specific abnormalities, none of which were suggestive of new cardiac ischemia, or heart attack. An echocardiogram was done of your heart which showed no new signs of a heart attack. Please follow up with your compliance aide at the [facility] and your clinical director at [facility], as directed. Your blood pressure was low throughout your hospital stay. We recommend you reduce your metoprolol dose from 25mg, twice daily to 12.5mg, twice daily. Your HbA1c, a 3 month marker of your blood sugar, was elevated to 8.3 while in the hospital. Please continue your home regimen of Glargine, or Lantus insulin, 30 units, twice daily, sliding scale insulin as directed, and metformin 1,000mg, three times daily. Please follow up with your primary care doctor for further diabetes management. Pending Studies at Discharge: No Stand-Alone Forms: My [facility], Smoking Cessation Medications and DC Order Prescriptions: New metoprolol tartrate [Lopressor] 50 mg tablet 25 mg PO BID Qty: 30 RF: 1 Continued nitroglycerin [Nitrostat] 0.4 mg tablet, sublingual 0.4 mg sublingual Q5M PRN (Reason: chest pain) 30 Days Qty: 25 RF: 0 aspirin [Adult Aspirin Regimen] 81 mg tablet,delayed release (DR/EC) 81 mg PO QAM RF: 0 venlafaxine [Effexor XR] 150 mg capsule,extended release 24hr 150 mg PO QAM RF: 0 omega-3 fatty acids [Fish Oil Concentrate] 1,000 mg capsule 1,000 mg PO HS RF: 0 multivitamin with iron tablet 1 tab PO QAM RF: 0 omeprazole 40 mg capsule,delayed release(DR/EC) 40 mg PO QAM RF: 0 sumatriptan succinate 100 mg tablet 100 mg PO Q2H PRN (Reason: Migraine Headache) RF: 0 topiramate 50 mg tablet 50 mg PO BID RF: 0 cholecalciferol (vitamin D3) 1,000 unit capsule 1,000 units PO HS RF: 0 insulin NPH and regular human 100 unit/mL (70-30) insulin pen See Rx Instructions SQ HS RF: 0 metformin 1,000 mg tablet 1,000 mg PO TID RF: 0 methimazole 5 mg Tablet 5 mg PO DAILY RF: 0 rosuvastatin 20 mg Tablet 20 mg PO DAILY RF: 0 cyclobenzaprine 30 mg Capsule,Extended Release 24hr 30 mg PO DAILY PRN (Reason: Muscle Spasm) RF: 0 furosemide 40 mg tablet 40 mg PO DAILY RF: 0 amiodarone 200 mg tablet 200 mg PO DAILY RF: 0 famotidine 20 mg tablet 20 mg PO BID RF: 0 tamsulosin 0.4 mg capsule 0.4 mg PO DAILY RF: 0 potassium chloride 10 mEq tablet,ER particles/crystals 10 meq PO DAILY RF: 0 Lantus U-100 Insulin 100 unit/mL solution 30 unit SUBCUT BID RF: 0 Discontinued metoprolol tartrate 25 mg tablet 25 mg PO BID Qty: 20 RF: 0 Discharge Orders: Discharge Order (Routine); Ordered 12/19/19 Ordered By: Yolanda Duval Admission Data Admit Date/Time: 02/14/20 20:17 Attending Provider: Anitha Oconnell Admit Provider: Sofie Sosa Primary Care Provider: Vonda Chahal Other Providers: Corey Swanson Other Interventions: Discharge Summary Assessment (RN) Last Done: 12/19/19 16:52 DC Date/Time DO NOT enter until pt leaves facility: 12/19/19 17:24 Supervising Physician Co-Signing Physician Notes Resident Physician Supervision Note: I independently interviewed and examined the patient and verified the borja histor y and physical, reviewed labs and image studies, discussed the case with the resident Dr. Duval and agree with the findings and care plan. Resident Activity Tracking Resident Involvement: Resident Care Provided Care Provided: [facility] Hospital [facility]
--- NOTE | 2019-12-19 19:31 | Electrocardiogram Report ---
Test Reason : Blood Pressure : / mmHG Vent. 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
--- NOTE | 2019-12-19 19:32 | Electrocardiogram Report ---
Test Reason : Blood Pressure : / mmHG Vent. Rate : 078 BPM Atrial Rate : 078 BPM P-R Int : 196 ms QRS Dur : 090 ms QT Int : 400 ms P-R-T Axes : 045 -01 116 degrees QTc Int : 456 ms Normal sinus rhythm Inferior infarct (cited on or before 18-DEC-2019) T wave abnormality, consider lateral ischemia Abnormal ECG When compared with ECG of 18-DEC-2019 17:12, (unconfirmed) No significant change was found Confirmed by Gigi Mathew ([id number]) on 12/19/2019 7:31:37 PM Referred By: REFERRED SELF Confirmed By:Gigi Mathew
--- NOTE | 2019-12-19 19:38 | Electrocardiogram Report ---
Test Reason : Blood Pressure : / mmHG Vent. Rate : 078 BPM Atrial Rate : 078 BPM P-R Int : 206 ms QRS Dur : 090 ms QT Int : 414 ms P-R-T Axes : 035 001 120 degrees QTc Int : 471 ms Poor data quality, interpretation may be adversely affected Normal sinus rhythm Inferior infarct (cited on or before 18-DEC-2019) T wave abnormality, consider lateral ischemia Abnormal ECG When compared with ECG of 18-DEC-2019 17:33, (unconfirmed) No significant change was found Confirmed by Gigi Mathew ([id number]) on 12/19/2019 7:38:15 PM Referred By: REFERRED SELF Confirmed By:Gigi Mathew
--- NOTE | 2019-12-19 19:38 | Electrocardiogram Report ---
Test Reason : Blood Pressure : / mmHG Vent. Rate : 077 BPM Atrial Rate : 077 BPM P-R Int : 206 ms QRS Dur : 092 ms QT Int : 404 ms P-R-T Axes : 021 003 123 degrees QTc Int : 457 ms Normal sinus rhythm Inferior infarct (cited on or before 18-DEC-2019) T wave abnormality, consider lateral ischemia Abnormal ECG When compared with ECG of 18-DEC-2019 22:01, (unconfirmed) No significant change was found Confirmed by Gigi Mathew ([id number]) on 12/19/2019 7:38:21 PM Referred By: REFERRED SELF Confirmed By:Gigi Mathew
== END 2019-12-19 17:24 | disposition home or self-care (01) ==
LOC: ED 17:11 → 2S 17:11 → SUATTDRO 20:17 → 2S 21:02

== ENCOUNTER 2025-09-06 10:08 | Observation (INO) ==
[2025-09-06] MEDS: SODIUM CHLORIDE 0.9% 1,000 ML IV ONE (11:04)
[2025-09-06] MEDS: ACETAMINOPHEN 1,000 MG/100 ML VIAL IV STA (11:06)
[2025-09-06] MEDS: ONDANSETRON INJ 2 MG/ML 2 ML VIAL IV STA ×2 (11:07→13:46)
--- NOTE | 2025-09-06 11:13 | Emergency Department Note ---
Impression & Plan Nausea and vomiting, Body aches ED Provider Note CHIEF COMPLAINT: Nausea and vomiting, chills, body aches x 1 day HISTORY OF PRESENT ILLNESS: This 74-year-old male patient presents to the emergency department at the recommendation of his primary care provider for IV fluid hydration. The patient states that yesterday, he developed generalized chills and bodyaches. He states he had 1 episode of vomiting but has otherwise been feeling nauseated. No diarrhea. Generalized abdominal discomfort, but no specific pain. He s does feel somewhat short of breath. He has had a mild cough. The patient denies any fever. He denies any chest pain. No back pain. He states he generally feels achy. He has not tried any medication for his symptoms. He was seen by his primary care provider earlier today and had a negative COVID-19 and influenza swab. He states that he was referred to the emergency department due to the episode of vomiting and difficulty tolerating p.o. food and fluids and concerned he may be dehydrated. History provided by: Patient REVIEW OF SYSTEMS: A 10 system review of systems was performed with positives and pertinent negatives listed in the history of present illness. All other systems were reviewed and are negative. ALLERGIES: Augmentin PHYSICAL EXAM: VITALS: Vitals are noted on the nurse's note and reviewed by myself. GENERAL: This is a 74-year-old male, in no acute distress, nondiaphoretic, well- developed well-nourished. SKIN: The skin was without rashes, erythema, edema, or bruising. There is no tenting of the skin. Capillary refill less than 2 seconds. HEAD: Normocephalic atraumatic. EARS: External auditory canals clear, tympanic membranes pearly arndt without erythema or effusion bilaterally. No hemotympanum. Negative toscano sign EYES: Pupils equal round and reactive to light and accommodation. Conjunctivae without injection, sclerae without icterus. Extraocular movements intact. NOSE: Patent, turbinates without inflammation or discharge. No sinus tenderness. MOUTH: Mucous membranes moist. Tonsils are not enlarged. Pharynx without erythema or exudate. Uvula midline. Airway patent. Tongue does not deviate. NECK: Supple without nuchal rigidity. No lymphadenopathy. Cervical spine is nontender. No JVD. HEART: Regular rate and rhythm without murmurs gallops or rubs. LUNGS: Clear to auscultation bilaterally without wheezes, rales or rhonchi. No retractions or accessory muscle use. ABDOMEN: Positive bowel sounds x 4. Soft, nontender, without masses or organomegaly. Murray sign negative. No guarding or rebound tenderness. No CVA tenderness bilaterally. MUSCULOSKELETAL: No muscle atrophy, erythema, or edema noted. Full range of motion without joint tenderness in all extremities. No tenderness to palpation. Normal gait. Strength 5/5 throughout. NEURO: Patient was alert and oriented to person place and time. No focal neurological deficits. An order was placed for continuous manager managed backup services. The monitor showed a normal sinus rhythm at a ventricular rate of 70 bpm, per my interpretation. EKG was reviewed by myself and found to be sinus rhythm with first-degree AV block at a rate of 65 beats per minute and per my interpretation reveals no ST elevation or depression. No T wave inversion. And when compared to previous EKG of 12/18/2024 is without significant change Imaging as interpreted by myself and the radiologist revealed no pneumonia, no evidence of bowel obstruction, with radiologist interpretation as above. I agree with the radiologist's findings as based upon my independent interpretation. EMERGENCY DEPARTMENT COURSE: The patient was evaluated as above. The patient presents to the emergency department for nausea and vomiting, chills, and bodyaches. Symptoms started yesterday. He denies any examination. He does report generalized discomfort associated with the nausea and vomiting. IV access was obtained, labs were drawn. Patient was hydrated with IV fluids medicated with Zofran. Labs reviewed. Per my interpretation, no leukocytosis or anemia. No thrombocytopenia. Renal, hepatic function and electrolytes without significant abnormality. Blood glucose is 191. Lactic acid 1.1. Procalcitonin 0.02. Lipase is 12. On reevaluation, patient had some improvement in his symptoms. P.o. fluid trial and crackers was attempted. The patient states that soon as he took sips of water, he felt very nauseated and had to go to the bathroom. Repeat dose of IV Zofran was administered. Again, the patient notes some improvement in his symptoms, but states he does not feel well enough to go home. Does not feel that he will be able to manage his symptoms and tolerate p.o. fluids to stay hydrated. The patient is requesting admission. I discussed the case with the [facility] hospitalist, Dr. Art. He did agree to evaluate the patient. Please see hospitalist dictation regarding ongoing management of this patient. This visit is during a period of high volume and high acuity in the emergency department. I attest that I have personally reviewed the patient medication list. I attest that I have reviewed the patient's blood pressure and it was found to be normal GCS: 15 In the evaluation and treatment of this patient the following differential diagnoses were entertained: Gastroenteritis, food borne illness, infections, appendicitis, diverticulitis, inflammatory bowel disease, obstruction, GI bleed, biliary pathology, volvulus, as well as other pathologies. The chart was completed utilizing [employer] Speech voice recognition software. Grammatical errors, random word insertions, pronoun errors, and incomplete sentences are an occasional consequence of this system due to software limitations, ambient noise, and hardware issues. Any formal questions or concerns about the content, text, or information contained within the body of this dictation should be directly addressed to the provider for clarification. 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 no recent issues Aortic stenosis moderate aortic stenosis (dimensionless index 0.3, mean peak gradient 26 mmHg) Anemia GERD without esophagitis Anxiety disorder Surgical History History of esophagogastroduodenoscopy (EGD) History of cardiac cath History of cystoscopy H/O transurethral resection of bladder tumor (TURBT) (09/2023) History of cardiac cath History of colonoscopy S/P cervical discectomy S/P carpal tunnel release S/P CABG x 4 S/P rotator cuff repair S/P appendectomy Family History Brother Esophagus cancer Other Cancer Diabetes Hyperthyroidism No family history of adverse response to anesthesia Denies family history of Ovarian cancer Prostate cancer Breast cancer Colorectal cancer Social History Smoking Status: Never smoker Tobacco Type: Cigarettes Age Started Using Tobacco: 14; Age Quit Using Tobacco: 22; packs per day: 0.75; Second Hand Exposure: No; Do You Dip or Chew Tobacco: No; Hx Alcohol Use: Yes Alcohol type: beer, wine and hard liquor Hx Substance Use: No Preferred Language: Indian Communication Ability: Effective Visual Impairment: No Limitations Epitaxial Reactor Technician Required: No Beliefs That Will Affect Care: None marital status: Current Living Situation: Spouse Current Living Situation Comment: Lives with and grand-daughter current occupational status: retired current occupation: retired from [employer] Feels Safe at Home: Yes Physical Activity Frequency: Does not Exercise Assistive Devices: Denture - Upper, Denture - Lower and Glasses Allergies Allergies Allergy/AdvReac Type Severity Reaction Status Date / Time amoxicillin Allergy Intermediate HIVES Verified 09/06/25 09:10 clavulanic acid Allergy Intermediate HIVES Verified 09/06/25 09:10 Penicillins Allergy Intermediate Hives Verified 09/06/25 09:10 Glydo AdvReac Unknown burning Uncoded 09/06/25 09:10 Home Meds Home Medications Medication Instructions Recorded Confirmed topiramate 50 mg tablet 50 mg PO BID 05/26/19 09/06/25 venlafaxine 150 mg 150 mg PO QAM 05/26/19 09/06/25 capsule,extended release 24 hr (Effexor XR) metformin 500 mg tablet 500 mg PO BID 06/09/21 09/06/25 acetaminophen 500 mg tablet 1,000 mg PO UD PRN pain 05/06/23 09/06/25 (Tylenol Extra Strength) cholecalciferol (vitamin D3) 25 25 mcg PO QAM 09/25/23 09/06/25 mcg (1,000 unit) capsule diclofenac sodium 1 % topical gel 2 g topical QID PRN Pain 09/25/23 09/06/25 (Voltaren Arthritis Pain) urea 20 % topical cream 1 applic topical BID 09/25/23 09/06/25 empagliflozin 25 mg tablet 25 mg PO QAM 03/05/24 09/06/25 (Jardiance) lisinopril 20 mg tablet 10 mg PO QAM 04/16/24 09/06/25 metoprolol tartrate 25 mg tablet 25 mg PO BID 04/16/24 09/06/25 ferrous sulfate 325 mg (65 mg 325 mg PO DAILY 06/19/24 09/06/25 iron) tablet (Feosol) losartan 25 mg tablet 25 mg PO QAM 06/19/24 09/06/25 multivitamin 1 tab PO DAILY 06/19/24 09/06/25 rosuvastatin 20 mg tablet 40 mg PO QPM 06/19/24 09/06/25 omeprazole 20 mg capsule,delayed 20 mg PO BID 09/06/25 09/06/25 release Previous Rx's Medication Instructions Recorded nitroglycerin 0.4 mg sublingual 0.4 mg sublingual Q5M PRN chest 11/07/19 tablet (Nitrostat) pain 30 days #25 tabs phenazopyridine 200 mg tablet 200 mg PO TID PRN pain #10 tabs 03/12/24 (Pyridium) 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 Production 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 Assembler #1 ea 04/03/24 (blood-glucose,tribunal member,cont) tamsulosin 0.4 mg capsule (Flomax) 0.4 mg PO DAILY #90 caps 10/09/24 Dexcom G7 Sensor (blood-glucose #9 ea 11/17/24 sensor) oxybutynin chloride 5 mg 5 mg PO DAILY #7 tabs 12/28/24 tablet,extended release 24 hr oxycodone 5 mg tablet 5 mg PO Q6H PRN pain #5 tabs 12/28/24 fluconazole 200 mg tablet 200 mg PO DAILY #7 tabs 02/03/25 (Diflucan) insulin aspar prot-insulin aspart 50 unit (0.5 mL) subcut BID #90 mL 02/05/25 100 unit/mL (70-30) subcutaneous pen (Novolog Mix 70-30FlexPen U-100) methimazole 10 mg tablet 10 mg PO DAILY #30 tabs 02/15/25 tirzepatide 2.5 mg/0.5 mL 2.5 mg (0.5 mL) subcut Q7D #2 mL 08/13/25 subcutaneous pen injector (Cristiano) ondansetron 4 mg disintegrating 4 mg PO Q8H #20 tabs 09/06/25 tablet Results & Data (ED) Vital Signs Vital Signs - 24 hr 09/06/25 10:20 09/06/25 12:00 09/06/25 12:21 Temperature 36.6 C Temperature Source Temporal Artery Scan Pulse Rate 70 70 Pulse Rate [Apical] 65 Respiratory Rate 18 18 Respiratory Effort / Characteristics Non-Labored Spontaneous Respiratory Depth Normal Blood Pressure 107/63 Blood Pressure [Right Arm] 109/59 L Blood Pressure Mean 77 Blood Pressure Mean [Right Arm] 75 Blood Pressure Position Sitting Pulse Oximetry 94 98 Oxygen Delivery Method Room Air Room Air Sepsis Recent Fever Within 48 Hours No Sepsis New/Unexplained Change in Mental Status No Sepsis Action Taken by Nursing No Action Required 09/06/25 14:00 Temperature Temperature Source Pulse Rate Pulse Rate [Apical] 67 Respiratory Rate 20 Respiratory Effort / Characteristics Respiratory Depth Blood Pressure Blood Pressure [Right Arm] 119/69 Blood Pressure Mean Blood Pressure Mean [Right Arm] 85 Blood Pressure Position Pulse Oximetry 98 Oxygen Delivery Method Room Air Sepsis Recent Fever Within 48 Hours Sepsis New/Unexplained Change in Mental Status Sepsis Action Taken by Nursing Laboratory Data 09/06/25 10:46 09/06/25 10:46 Lab Results 09/06/25 09/06/25 Range/Units 10:46 12:20 WBC 6.88 (4.8-10.8) K/ul RBC 5.57 (4.70-6.10) M/uL Hgb 14.0 (14.0-18.0) g/dl Hct 42.6 (42.0-52.0) % MCV 76.5 L (80.0-100.0) fL MCH 25.1 (25.0-34.0) pg MCHC 32.9 (32.0-36.0) g/dL RDW Std Deviation 43.3 (36.4-46.3) fL RDW Coeff of Kate 15.8 H (11.5-14.5) % Plt Count 321 (130-400) K/uL MPV 9.4 (9.4-12.4) fL Immature Gran % (Auto) 0.1 % Neut % (Auto) 72.8 % Lymph % (Auto) 16.9 % [place] % (Auto) 8.6 % Eos % (Auto) 1.0 % Baso % (Auto) 0.6 % Neut # (Auto) 5.01 (1.40-6.50) K/uL Lymph # (Auto) 1.16 L (1.20-3.40) K/uL [place] # (Auto) 0.59 (0.11-0.59) K/uL Eos # (Auto) 0.07 (0.00-0.50) K/uL Baso # (Auto) 0.04 (0.00-0.20) K/uL Immature Gran # (Auto) 0.01 (0.01-0.20) K/uL PT 10.9 (9.0-12.0) Seconds INR 1.0 (0.9-1.1) APTT 35 H (21-31) Seconds PTT Ratio 1.3 Sodium 136 (136-145) mmol/L Potassium 4.1 (3.5-5.1) mmol/L Chloride 100 (98-107) mmol/L Carbon Dioxide 27 (21-32) mmol/L Anion Gap 9 (3-11) BUN 22 (6-23) mg/dl Creatinine 0.88 (0.6-1.4) mg/dl Est Cr Clr Drug Dosing 69.2 ml/min eGFR 89.67 BUN/Creatinine Ratio 25.0 H (10-20) Glucose 191 H (70-99(Fasting)) mg/dl Lactate 1.1 (0.4-2.0) mmol/L Calcium 9.8 (8.6-10.3) mg/dl Total Bilirubin 0.4 (0.2-1.0) mg/dl AST 10 L (13-39) U/L ALT 8 (7-52) U/L Alkaline Phosphatase 100 (34-104) U/L Troponin I High Sens 5.9 (0-20) pg/ml Total Protein 7.9 (6.0-8.3) gm/dl Albumin 4.1 (3.4-5.0) gm/dl Globulin 3.8 (2.5-4.0) gm/dl Albumin/Globulin Ratio 1.1 (0.9-2) Lipase 12 (11-82) U/L Procalcitonin 0.02 (0-0.5) ng/ml Administered Medications Discontinued Medications Acetaminophen (Ofirmev) 1,000 mg in 100 mls @ 400 mls/hr IV NOW STA Stop: 09/06/25 11:11 Last Infusion: 09/06/25 11:54 Dose: Infused Documented By: amg Admin: 09/06/25 11:06 Dose: 400 mls/hr Documented By: kacy Sodium Chloride (Nss) 1,000 mls @ 999 mls/hr IV .Q1H1M ONE Stop: 09/06/25 11:57 Last Infusion: 09/06/25 11:54 Dose: Infused Documented By: amkarolina Admin: 09/06/25 11:04 Dose: 999 mls/hr Documented By: kacy Ioversol (Optiray 320 100ml) 93 ml IV ONCE ONE Stop: 09/06/25 13:58 Last Admin: 09/06/25 13:57 Dose: 93 ml Documented By: BRENT Ondansetron HCl (Ondansetron Inj 2 Mg/Ml 2 Ml Vial) 4 mg IV NOW STA Stop: 09/06/25 11:00 Last Admin: 09/06/25 11:07 Dose: 4 mg Documented By: kacy Ondansetron HCl (Ondansetron Inj 2 Mg/Ml 2 Ml Vial) 4 mg IV NOW STA Stop: 09/06/25 13:39 Last Admin: 09/06/25 13:46 Dose: 4 mg Documented By: amkarolina Imaging Data Radiologist's Impression: Chest X-Ray 09/06/25 10:24 XR chest 1V portable CLINICAL HISTORY: Chest pain, nonspecific COMPARISON STUDY: 12/17/2024 FINDINGS: Stable CABG. Heart size and pulmonary vasculature are normal. Stable mild blunting of the left costophrenic angle. Otherwise no consolidation or pleural effusion seen. No pneumothorax. IMPRESSION: No acute findings. ACT 112: Negative or not required by law. Electronically signed by: Abdiel Guzman M.D. 09/06/2025 11:20 AM Abdomen/Pelvis CT 09/06/25 13:42 CT SCAN OF THE ABDOMEN AND PELVIS WITH IV CONTRAST CLINICAL HISTORY: Abdominal pain and vomiting. COMPARISON STUDY: CT of the abdomen and pelvis November 12, 2024. TECHNIQUE: Following the IV administration of 93 cc of Optiray 320, CT scan of the abdomen and pelvis is performed from the lung bases to the proximal femora. Images are reviewed in the axial, sagittal, and coronal planes. IV contrast was administered without complication. A dose lowering technique was utilized adhering to the principles of ALARA. CT DOSE: 694.44 mGy.cm FINDINGS: A small left pleural effusion with pleural thickening is unchanged since CT of November 12, 2024. This favors a chronic pleural effusion. No pneumatosis, free air or portal venous gas is present. There are no hepatic lesions. Spleen, adrenal glands and pancreas are unremarkable. Partially calcified upper abdominal lymph nodes are unchanged. Bilateral hydronephrosis shown on prior CT has resolved. There are no urinary calculi. Bladder wall thickening is likely chronic. There is a moderate amount of stool within the colon and rectum. There is no evidence for a bowel obstruction. No lymphadenopathy is present. There is moderate aortoiliac atherosclerotic plaque. No fractures within the lumbar spine, pelvis or hips are identified. IMPRESSION: 1. No bowel obstruction. No bowel wall thickening. Moderate amount of stool within the colon and rectum. 2. Resolution of bilateral hydronephrosis shown on prior CT. Bladder wall thickening which is likely chronic. No urinary calculi. 3. Small left pleural effusion with pleural thickening, unchanged since prior CT. This favors a chronic pleural effusion. ACT 112: Negative or not required by law. Electronically signed by: Pablo Grier M.D. 09/06/2025 2:21 PM Discharge Plan Visit Data Chief Complaint: Dehydration Stated Complaint: REF BY DOC, DEHYDRATION ED Provider: Silas Leger ED Midlevel Provider: Radha Alegre Discharge Problem: Nausea and vomiting, Body aches Patient Disposition: Admitted As Inpatient Condition: Good Forms Stand Alone Forms: [facility] Prescriptions Prescriptions: No Action nitroglycerin [Nitrostat] 0.4 mg tablet, sublingual 0.4 mg sublingual Q5M PRN (Reason: chest pain) 30 Days Qty: 25 0RF diclofenac sodium [Voltaren Arthritis Pain] 1 % gel 2 g topical QID PRN (Reason: Pain) Rx Instructions: apply to single elbow, wrist or hand; for hand includes palm/fingers/back of hand urea 20 % cream 1 applic topical BID cholecalciferol (vitamin D3) 25 mcg (1,000 unit) capsule 25 mcg PO QAM phenazopyridine [Pyridium] 200 mg tablet 200 mg PO TID PRN (Reason: pain) Qty: 10 0RF ferrous sulfate [Feosol] 325 mg (65 mg iron) tablet 325 mg PO DAILY rosuvastatin 20 mg tablet 40 mg PO QPM multivitamin Tablet 1 tab PO DAILY losartan 25 mg tablet 25 mg PO QAM (DME) Dexcom G7 Sensor Device See Rx Instructions .Route Qty: 9 3RF Rx Instructions: Change sensor every 10 days fluconazole [Diflucan] 200 mg tablet 200 mg PO DAILY Qty: 7 0RF insulin asp prt-insulin aspart [Novolog Mix 70-30FlexPen U-100] 100 unit/mL (70-30) insulin pen 50 unit subcut BID Qty: 90 3RF metoprolol tartrate 25 mg tablet 25 mg PO BID lisinopril 20 mg tablet 10 mg PO QAM metformin 500 mg tablet 500 mg PO BID venlafaxine [Effexor XR] 150 mg capsule,extended release 24hr 150 mg PO QAM topiramate 50 mg tablet 50 mg PO BID (DME) Dexcom G7 Production Line Assembler Misc See Rx Instructions .Route Qty: 1 0RF Rx Instructions: Use to monitor CGM readings tamsulosin [Flomax] 0.4 mg capsule 0.4 mg PO DAILY Qty: 90 3RF Mounjaro 2.5 mg/0.5 mL pen injector 2.5 mg subcut Q7D Qty: 2 4RF Hold Instructions: Nausea/vomiting ondansetron 4 mg tablet,disintegrating 4 mg PO Q8H Qty: 20 0RF methimazole 10 mg tablet 10 mg PO DAILY Qty: 30 2RF acetaminophen [Tylenol Extra Strength] 500 mg tablet 1,000 mg PO UD PRN (Reason: pain) Jardiance 25 mg tablet 25 mg PO QAM oxybutynin chloride 5 mg tablet extended release 24hr 5 mg PO DAILY Qty: 7 0RF oxycodone 5 mg tablet 5 mg PO Q6H PRN (Reason: pain) Qty: 5 0RF omeprazole 20 mg capsule,delayed release(DR/EC) 20 mg PO BID Rx Instructions: TAKE 1 CAPSULE BY MOUTH TWICE DAILY Referrals Referrals: Vonda Anthony CRNP [Primary Care Provider] -
--- NOTE | 2025-09-06 11:21 | XRay Report ---
XR chest 1V portable CLINICAL HISTORY: Chest pain, nonspecific COMPARISON STUDY: 12/17/2024 FINDINGS: Stable CABG. Heart size and pulmonary vasculature are normal. Stable mild blunting of the l eft costophrenic angle. Otherwise no consolidation or pleural effusion seen. No pneumothorax. IMPRESSION: No acute findings. ACT 112: Negative or not required by law. Electronically signed by: Abdiel Guzman M.D. 09/06/2025 11:20 AM
[2025-09-06 11:34] LABS: Hematocrit (blood only) 42.6 % (42.0-52.0); Hemoglobin 14.0 g/dl (14.0-18.0); Immature Granulocytes # (auto) 0.01 K/uL (0.01-0.20); Immature Granulocytes % (auto) 0.1 %; Mean Corpuscular Hemoglobin 25.1 pg (25.0-34.0); Mean Corpuscular Volume 76.5 fL (80.0-100.0); Platelet Count 321 K/uL (130-400); RDW Standard Deviation 43.3 fL (36.4-46.3); Red Blood Count 5.57 M/uL (4.70-6.10); White Blood Count 6.88 K/ul (4.8-10.8)
[2025-09-06 11:53] LABS: Alanine Aminotransferase 8.0 U/L (7-52); Albumin Globulin Ratio 1.1 (0.9-2); Albumin Level 4.1 gm/dl (3.4-5.0); Alkaline Phosphatase 100.0 U/L (34-104); Anion Gap 9.0 (3-11); Bilirubin,Total 0.4 mg/dl (0.2-1.0); Blood Urea Nitrogen 22.0 mg/dl (6-23); Calcium 9.8 mg/dl (8.6-10.3); Carbon Dioxide 27.0 mmol/L (21-32); Chloride 100.0 mmol/L (98-107); Creatinine Clr Calc Pharmacy 69.2 ml/min; Globulin 3.8 gm/dl (2.5-4.0); Glucose 191.0 mg/dl (70-99(Fasting)); Lipase 12.0 U/L (11-82); Potassium 4.1 mmol/L (3.5-5.1); Sodium 136.0 mmol/L (136-145); Total Protein 7.9 gm/dl (6.0-8.3)
[2025-09-06 12:02] LABS: INR 1.0 (0.9-1.1); Partial Thromboplastin Time 35 Seconds (21-31); Prothrombin Time 10.9 Seconds (9.0-12.0)
[2025-09-06] MEDS: OPTIRAY 320 100ml IV ONE (13:57)
--- NOTE | 2025-09-06 14:23 | CT Scan Report ---
CT SCAN OF THE ABDOMEN AND PELVIS WITH IV CONTRAST CLINICAL HISTORY: Abdominal pain and vomiting. COMPARISON STUDY: CT of the abdomen and pelvis November 12, 2024. TECHNIQUE: Following the IV administration of 93 cc of Optiray 320, CT scan of the abdomen and pelvi s is performed from the lung bases to the proximal femora. Images are reviewed in the axial, sagittal , and coronal planes. IV contrast was administered without complication. A dose lowering technique wa s utilized adhering to the principles of ALARA. CT DOSE: 694.44 mGy.cm FINDINGS: A small left pleural effusion with pleural thickening is unchanged since CT of November 12 025. This favors a chronic pleural effusion. No pneumatosis, free air or portal venous gas is present . There are no hepatic lesions. Spleen, adrenal glands and pancreas are unremarkable. Partially calci fied upper abdominal lymph nodes are unchanged. Bilateral hydronephrosis shown on prior CT has resolv ed. There are no urinary calculi. Bladder wall thickening is likely chronic. There is a moderate amou nt of stool within the colon and rectum. There is no evidence for a bowel obstruction. No lymphadenop athy is present. There is moderate aortoiliac atherosclerotic plaque. No fractures within the lumbar spine, pelvis or hips are identified. IMPRESSION: 1. No bowel obstruction. No bowel wall thickening. Moderate amount of stool within the colon and rect um. 2. Resolution of bilateral hydronephrosis shown on prior CT. Bladder wall thickening which is likely chronic. No urinary calculi. 3. Small left pleural effusion with pleural thickening, unchanged since prior CT. This favors a chron ic pleural effusion. ACT 112: Negative or not required by law. Electronically signed by: Pablo Grier M.D. 09/06/2025 2:21 PM
[2025-09-06] MEDS ORDERED: GLUCAGON FOR INJ 1 MG VIAL SQ PRN (15:56)
[2025-09-06] MEDS ORDERED: CARBOHYDRATES FOR HYPOGLYCEMIA PO PRN (15:56)
[2025-09-06] MEDS ORDERED: GLUCOSE 40% GEL 15 GM TUBE PO PRN (15:56)
[2025-09-06] MEDS ORDERED: DEXTROSE 50% 50 ML SYRINGE IV PRN (15:56)
[2025-09-06] MEDS ORDERED: ONDANSETRON INJ 2 MG/ML 2 ML VIAL IV PRN (15:56)
[2025-09-06] MEDS ORDERED: GLUCOSE 10 TAB/TUBE PO PRN (15:56)
--- NOTE | 2025-09-06 16:09 | History & Physical Report ---
Date of Service September 06, 2025 Assessment & Plan (1) Nausea and vomiting: Plan: Assessment: 1. Acute nausea and vomiting. Refractory to antiemetics and IV fluids. Reassuring CAT scan. Reassuring labs. Suspect gastroenteritis. Supportive care. Clear liquids only for now. As needed antiemetics. 2. Coronary artery disease. Remote. Status post CABG. No cardiac symptoms at this time. 3. Diabetes mellitus. Basal bolus insulin therapy has been ordered for sliding scale. A1c in the morning. 4. History of bladder carcinoma status post BCG treatment. He is due for one of his final cystoscopies today. This will need rescheduled in fact the patient 's 's already rescheduled for him. 5. History of hyperthyroidism. Continue suppressive therapy and check a TSH in the morning. 6. History of iron deficiency anemia. Follows with heme-onc as an outpatient. Plan: As discussed above. Please refer to orders for further planning. History of Present Illness Chief Complaint: Nausea vomiting Primary Care Provider: JANKI Morillo This 74-year-old male with a history of coronary artery disease and bladder carcinoma status post BCG treatment. He developed some nausea with refractory vomiting over the last 24 hours. Presented to his PCP today where he had a negative COVID-19 test. He was directed to the ER for further evaluation and treatment. In the ER, laboratory studies were reassuring. And the patient had a CT of the abdomen pelvis which showed resolution of her current bilateral hydronephrosis from prior studies with a moderate stool burden but no obstruction and no acute findings. Course in the emergency department patient received multiple doses of Zofran and IV fluids. Despite this she felt p.o. challenged with recurrent nausea and dry heaving. Therefore recalled admit the patient for further evaluation and treatment. Allergies Allergy/AdvReac Type Severity Reaction Status Date / Time amoxicillin Allergy Intermediate HIVES Verified 09/06/25 09:10 clavulanic acid Allergy Intermediate HIVES Verified 09/06/25 09:10 Penicillins Allergy Intermediate Hives Verified 09/06/25 09:10 Glydo AdvReac Unknown burning Uncoded 09/06/25 09:10 Home Medications Medication Instructions Recorded Confirmed Type topiramate 50 mg tablet 50 mg PO BID 05/26/19 09/06/25 History venlafaxine 150 mg 150 mg PO QAM 05/26/19 09/06/25 History capsule,extended release 24 hr (Effexor XR) nitroglycerin 0.4 mg sublingual 0.4 mg sublingual Q5M PRN chest 11/07/19 09/06/25 Rx tablet (Nitrostat) pain 30 days #25 tabs metformin 500 mg tablet 500 mg PO BID 06/09/21 09/06/25 History acetaminophen 500 mg tablet 1,000 mg PO UD PRN pain 05/06/23 09/06/25 History (Tylenol Extra Strength) cholecalciferol (vitamin D3) 25 25 mcg PO QAM 09/25/23 09/06/25 History mcg (1,000 unit) capsule diclofenac sodium 1 % topical gel 2 g topical QID PRN Pain 09/25/23 09/06/25 History (Voltaren Arthritis Pain) urea 20 % topical cream 1 applic topical BID 09/25/23 09/06/25 History empagliflozin 25 mg tablet 25 mg PO QAM 03/05/24 09/06/25 History (Jardiance) phenazopyridine 200 mg tablet 200 mg PO TID PRN pain #10 tabs 03/12/24 09/06/25 Rx (Pyridium) Dexcom G7 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 Operator #1 ea 04/03/24 09/06/25 Rx (blood-glucose,footwear sales representative,cont) lisinopril 20 mg tablet 10 mg PO QAM 04/16/24 09/06/25 History metoprolol tartrate 25 mg tablet 25 mg PO BID 04/16/24 09/06/25 History ferrous sulfate 325 mg (65 mg 325 mg PO DAILY 06/19/24 09/06/25 History iron) tablet (Feosol) losartan 25 mg tablet 25 mg PO QAM 06/19/24 09/06/25 History multivitamin 1 tab PO DAILY 06/19/24 09/06/25 History rosuvastatin 20 mg tablet 40 mg PO QPM 06/19/24 09/06/25 History tamsulosin 0.4 mg capsule (Flomax) 0.4 mg PO DAILY #90 caps 10/09/24 09/06/25 Rx Dexcom G7 Sensor (blood-glucose #9 ea 11/17/24 09/06/25 Rx sensor) oxybutynin chloride 5 mg 5 mg PO DAILY #7 tabs 12/28/24 09/06/25 Rx tablet,extended release 24 hr oxycodone 5 mg tablet 5 mg PO Q6H PRN pain #5 tabs 12/28/24 09/06/25 Rx fluconazole 200 mg tablet 200 mg PO DAILY #7 tabs 02/03/25 09/06/25 Rx (Diflucan) insulin aspar prot-insulin aspart 50 unit (0.5 mL) subcut BID #90 mL 02/05/25 09/06/25 Rx 100 unit/mL (70-30) subcutaneous pen (Novolog Mix 70-30FlexPen U-100) methimazole 10 mg tablet 10 mg PO DAILY #30 tabs 02/15/25 09/06/25 Rx tirzepatide 2.5 mg/0.5 mL 2.5 mg (0.5 mL) subcut Q7D #2 mL 08/13/25 09/06/25 Rx subcutaneous pen injector (Cristiano) omeprazole 20 mg capsule,delayed 20 mg PO BID 09/06/25 09/06/25 History release ondansetron 4 mg disintegrating 4 mg PO Q8H #20 tabs 09/06/25 09/06/25 Rx tablet 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 meatal stricture Bladder carcinoma TURBT & chemotherapy injected into the bladder (Nov 2023) EVON (iron deficiency anemia) Pulmonary nodule Loss of protective sensation of skin of foot (Chronic) Hyperthyroidism Microalbuminuria (Chronic) Coronary artery disease s/p CABG x 2019 Trigger finger 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 no recent issues Aortic stenosis moderate aortic stenosis (dimensionless index 0.3, mean peak gradient 26 mmHg) Anemia GERD without esophagitis Anxiety disorder Surgical History History of esophagogastroduodenoscopy (EGD) History of cardiac cath History of cystoscopy H/O transurethral resection of bladder tumor (TURBT) (09/2023) History of cardiac cath History of colonoscopy S/P cervical discectomy S/P carpal tunnel release S/P CABG x 4 S/P rotator cuff repair S/P appendectomy Family History Brother Esophagus cancer Other Cancer Diabetes Hyperthyroidism No family history of adverse response to anesthesia Denies family history of Ovarian cancer Prostate cancer Breast cancer Colorectal cancer Social History Smoking Status: Never smoker Tobacco Type: Cigarettes Age Started Using Tobacco: 14; Age Quit Using Tobacco: 22; packs per day: 0.75; Second Hand Exposure: No; Do You Dip or Chew Tobacco: No; Hx Alcohol Use: Yes Alcohol type: beer, wine and hard liquor Hx Substance Use: No Preferred Language: Mohawk Communication Ability: Effective Visual Impairment: No Limitations Gauge And Weigh Machine Operator Required: No Beliefs That Will Affect Care: None marital status: Current Living Situation: Spouse Current Living Situation Comment: Lives with and grand-daughter current occupational status: retired current occupation: retired from [employer] Yanira swan Feels Safe at Home: Yes Physical Activity Frequency: Does not Exercise Assistive Devices: Denture - Upper, Denture - Lower and Glasses Review of Systems Review of Systems: A 10 point review of system was obtained and unless otherwise stated here or in history of present illness are negative and noncontributory to chief complaint. Physical Exam Physical Exam: In General: In general very pleasant 74-year-old male who is alert and oriented x 3 at the time my exam. He is accompanied by his at the time my examination. He denies any substance use or abuse including tobacco and alcohol. 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 He still actively works including a [employer]. 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 HEENT: Normocephalic atraumatic pupils are equal round and reactive to light bilaterally. No scleral icterus no conjunctival injection external auditory canals are patent septum is in the midline nose is without discharge oral mucosa is pink and dry without lesion. NECK: Supple no rigidity no lymphadenopathy no thyromegaly no carotid bruits no JVD no masses. HEART: Regular rate and rhythm I do not appreciate any ectopy or rub. No murmur. Sternotomy scar noted hyperactive bowel sounds. No appreciable organomegaly or abdominal bruits. LUNGS: Clear to auscultation bilaterally and anteriorly with no evidence of adventitious sounds/wheezes rales or rhonchi. ABDOMEN: Soft nontender, no rebound, no peritoneal signs, positive bowel sounds, no appreciable organomegaly. EXTREMITIES: Intact, no peripheral cyanosis, clubbing or edema. Strength is 5 out of 5 in extremities x4. NEUROLOGICAL: Cranial nerves II through XII are grossly intact with no focal deficit elicited upon examination. Results & Data Results & Data Vital Signs (Past 12 Hours) Vital Signs Temp Pulse Pulse Resp BP BP Pulse Ox 09/06/25 14:00 67 20 119/69 98 09/06/25 12:21 70 09/06/25 12:00 65 18 109/59 L 98 09/06/25 10:20 36.6 C 70 18 107/63 94 O2 Del Method 09/06/25 14:00 Room Air 09/06/25 12:21 09/06/25 12:00 Room Air 09/06/25 10:20 Room Air Code Status & VTE Plan Code Status Full code. I personally discussed with patient at the bedside. VTE Prophylaxis Plan VTE Prophylaxis will be ordered: Yes PG Care Time/CCT Total # of Minutes Spent Total Time Spent with Patient: Total time spent is greater than 50% in coordination of care (as documented) at patient's floor/unit and/or counseling patient: Coding Level of Care Code 26790 INT INP/OBS CARE 2/55MIN Diagnoses Nausea and vomiting R11.2
[2025-09-06] MEDS: SODIUM CHLORIDE 0.9% 1,000 ML IV SCH (16:23)
[2025-09-06] MEDS: INSULIN ASPART PER UNIT CHARGE SC SCH (16:32)
[2025-09-06 17:46] LABS: Appearance Urine Clear (Clear); Bacteria Urine Automated None Seen (None Seen); Cast Urine Automated 0-2 /lpf (0-2); Epithelial Cell Urine Auto 0-2 /hpf (0-2); Glucose Urine UA 3+ (Negative); WBC Urine Automated 0-5 /hpf (0-5)
[2025-09-06] MEDS: ACETAMINOPHEN 500 MG TAB PO PRN (19:52)
[2025-09-06] MEDS: TOPIRAMATE 50 MG TAB PO SCH (20:11)
[2025-09-06] MEDS: ROSUVASTATIN CALCIUM 20 MG TAB PO SCH (20:11)
[2025-09-06] MEDS: METOPROLOL TARTRATE 25 MG TAB PO SCH (20:11)
[2025-09-06] MEDS: LANTUS PER UNIT CHARGE SQ SCH (20:11)
[2025-09-07 07:38] LABS: Hematocrit (blood only) 38.7 % (42.0-52.0); Hemoglobin 12.7 g/dl (14.0-18.0); Immature Granulocytes # (auto) 0.01 K/uL (0.01-0.20); Immature Granulocytes % (auto) 0.2 %; Mean Corpuscular Hemoglobin 25.7 pg (25.0-34.0); Mean Corpuscular Volume 78.2 fL (80.0-100.0); Platelet Count 253 K/uL (130-400); RDW Standard Deviation 45.1 fL (36.4-46.3); Red Blood Count 4.95 M/uL (4.70-6.10); White Blood Count 5.23 K/ul (4.8-10.8)
[2025-09-07 08:02] LABS: Alanine Aminotransferase 7.0 U/L (7-52); Albumin Globulin Ratio 1.1 (0.9-2); Albumin Level 3.4 gm/dl (3.4-5.0); Alkaline Phosphatase 79.0 U/L (34-104); Anion Gap 5.0 (3-11); Bilirubin,Total 0.3 mg/dl (0.2-1.0); Blood Urea Nitrogen 13.0 mg/dl (6-23); Calcium 9.0 mg/dl (8.6-10.3); Carbon Dioxide 26.0 mmol/L (21-32); Chloride 106.0 mmol/L (98-107); Cholesterol 100.0 mg/dl (0-200); Creatinine Clr Calc Pharmacy 81.7 ml/min; Globulin 3.2 gm/dl (2.5-4.0); Glucose 104.0 mg/dl (70-99(Fasting)); HDL Cholesterol 37.0 mg/dl; Magnesium 2.0 mg/dl (1.7-2.4); Potassium 4.2 mmol/L (3.5-5.1); Sodium 137.0 mmol/L (136-145); Total Protein 6.6 gm/dl (6.0-8.3); Triglycerides 97.0 mg/dl (0-150)
[2025-09-07 08:17] LABS: Thyroid Stimulating Hormone 0.854 uIu/ml (0.300-4.500)
[2025-09-07] MEDS: VENLAFAXINE HCL XR 150 MG CAPXR PO SCH (09:26)
[2025-09-07] MEDS: OXYBUTYNIN CHLORIDE XL 5 MG TABCR PO SCH (09:27)
[2025-09-07] MEDS: CHOLECALCIFEROL 25 MCG (1000 UNITS) TAB PO SCH (09:27)
[2025-09-07] MEDS: FLUCONAZOLE 100 MG TAB PO SCH (09:27)
[2025-09-07] MEDS: FERROUS SULFATE 325 MG TAB PO SCH (09:27)
[2025-09-07] MEDS: TAMSULOSIN HCL 0.4 MG CAP PO SCH (09:27)
[2025-09-07 10:08] LABS: Hemoglobin A1C 10.2 % (4.5-5.6)
--- NOTE | 2025-09-07 11:49 | Electrocardiogram Report ---
Test Reason : Blood Pressure : */* mmHG Vent. Rate : 65 BPM Atrial Rate : 65 BPM P-R Int : 228 ms QRS Dur : 88 ms QT Int : 404 ms P-R-T Axes : 54 -5 69 degrees QTcB Int : 420 ms Sinus rhythm with 1st degree A-V block Septal infarct , age undetermined Abnormal ECG When compared with ECG of 18-Dec-2024 09:55, Septal infarct is now Present Confirmed by Ronak Naik ([id number]) on 09/07/2025 11:49:37 AM Referred By: Link Herzog Confirmed By: Ronak Naik
[2025-09-07 15:15] VITALS: BP 109/65; PULSE 60; RESP 16; TEMP 97.5; O2SAT 99
--- NOTE | 2025-09-07 18:54 | Discharge Summary ---
Discharge Summary Date of Service September 07, 2025 Principal Dx & Hospital Course #1 = Principal Diagnosis (1) Nausea and vomiting: Assessment: 1. Acute nausea and vomiting (resolved) Initially refractory to antiemetics and IV fluids Reassuring CAT scan Reassuring labs Suspected viral gastroenteritis + new gastroparesis Recently started Mounjaro, which may be contributing to gastroparesis Patient also reported flulike symptoms Discontinue Mounjaro on discharge Recommend potential GI follow-up if this recurs off Mounjaro Upcoming EGD/colonoscopy already scheduled for November 18, 2025 Advance to regular liquid diet to a full diet over the course of the day Discharge on Zofran 4 mg ODT tablets q6h as needed 2. Coronary artery disease Remote Status post CABG No cardiac symptoms at this time. 3. Diabetes mellitus A1c elevated at 10.2% on 09/07 Basal bolus insulin therapy has been ordered for sliding scale Restart home diabetic regimen on discharge 4. History of bladder carcinoma status post BCG treatment. He was due for 1 his final cystoscopies yesterday on 09/06 Patient's has already rescheduled him 5. History of hyperthyroidism. Continue suppressive therapy 6. History of iron deficiency anemia. Follows with heme-onc as an outpatient. Day of discharge 09/07: VSS Mr. Mccarthy reports he is doing well this morning. He has been tolerating his clear liquid diet well breakfast, and is requesting solid food for lunch. He reports he feels hungry, like he needs to eat more. While he does endorse intermittent nausea, he denies any stomach pain or bloating after having liquids. His symptoms originally started on Saturday, when he could barely keep down chicken corn soup. He also feels like he vomited up stomach contents that had been in his stomach for 2 days, as if he could not digest this from what he had eaten 2 days prior. No diarrhea. He did have a bowel movement today that was firm/dark brown. No blood in the stool. He relays a history of ileitis both as a child at 11 years old, and in the 1970s when he was in the [employer]. No prior history of abdominal surgeries. He does have a history of bladder cancer, which was diagnosed approximately a year and a half ago. He is set to receive an EGD/colonoscopy on November 18, 2025 due to his iron deficiency anemia. No personal or family history of colon cancer to his knowledge. He denies any pain after eating, but will occasionally stand up move around and suddenly feel like he needs to vomit. No recent changes in diet. ROS: Patient endorses nausea with eating, and burning with urination (which patient attributes to current Blake catheterization in the setting of bladder cancer) Patient denies fever, chills, night sweats, chest pain, SOB, hematemesis, diarrhea, or blood in the urine/stool. Addendum at 1800: Patient is tolerating a regular diet for dinner and is requesting to be discharged home tonight. Disposition: Discharge home Notes For Next Care Provider Hospitalized for intractable nausea and vomiting. Likely viral gastroenteritis which resolved. It is also possible that Mounjaro was contributing/leading to gastroparesis, as patient reported vomiting up food that was not digested over 2 days. He already has a EGD/colonoscopy scheduled for November 2025. Discontinued Mounjaro on discharge Zofran and ODT on discharge Patient was told to hold his lisinopril, as his heart rate was low around 60 bpm throughout his hospital stay, and his blood pressure throughout his hospital stay (down to 86/58 at its lowest, despite not taking any blood pressure medications). If recurrence of intractable nausea vomiting, recommend GI follow-up or moving up his currently schedule EGD Admission HPI Per Admitting Provider This 74-year-old male with a history of coronary artery disease and bladder carcinoma status post BCG treatment. He developed some nausea with refractory vomiting over the last 24 hours. Presented to his PCP today where he had a negative COVID-19 test. He was directed to the ER for further evaluation and treatment. In the ER, laboratory studies were reassuring. And the patient had a CT of the abdomen pelvis which showed resolution of her current bilateral hydronephrosis from prior studies with a moderate stool burden but no obstruction and no acute findings. Course in the emergency department patient received multiple doses of Zofran and IV fluids. Despite this she felt p.o. challenged with recurrent nausea and dry heaving. Therefore recalled admit the patient for further evaluation and treatment. Discharge Exam General: no acute distress; pleasant affect; knitting at bedside; non-toxic appearing; cooperative; SpO2 99% on RA HEENT: normocephalic, atraumatic; PERRLA; vision and hearing intact Neck: supple; trachea midline Skin: warm, dry without signs of tenting; no cyanosis; no rashes, bruising, lesions, or erythema noted CV: chest wall NTP in all 4 quadrant; no rashes or bruising on the abdomen or flanks; RRR; S1/S2 normal; no murmurs/rubs/gallops; pulses intact and symmetric at radial, DP, and PT Lungs: no acute respiratory distress; symmetrical chest wall expansion; clear breath sounds across all lung canales w/o adventitious sounds; no wheezing ABD: Soft, NTP; BS present; no rebound/guarding; no distention MSK: no tics or fasciculations; no edema noted in the LEs b/l, nonerythematous Neuro: A&Ox3; normal mood and affect; fluent speech; sensation intact and symmetric in the LEs b/l Discharge Plan Discharge Items Patient Disposition: Home - Self-Care Reason For Visit: N/V Discharge Diagnosis: Intractable nausea and vomiting, gastritis Condition on Discharge: Good Activity: Resume your previous activity Non-emergency contact: Primary Care Provider and [employer] Call non-emergency contact if: you have any medication questions, your symptoms worsen, your pain is not controlled and you have a fever Follow-up/Referrals: Vonda Anthony CRNP [Primary Care Provider] - Diet: Carb Consistent or DM2 Addtl Attending Provider Instructions: You are hospitalized at [facility] from 09/06 for 09/07 for intractable nausea vomiting and difficulty keeping down fluids. Imaging of your abdomen on arrival was reassuring; no small bowel obstruction. It is suspected that this was due to either an acute episode of gastritis, viral GI illness, or something called diabetic gastroparesis. It is also possible that this was multifactorial: You were recently started on a medication called Mounjaro, which can contribute to gastroparesis/nausea/vomiting. This coupled with a acute viral illness could have affected your stomach. You reported full resolution of your symptoms prior to discharge. Your vitals have remained stable over the course of your hospital stay, and you did not have an elevated white blood cell count to indicate signs of severe infection. For these reasons, we feel that you are safe to return home at this time with close PCP/GI follow-up. You reported that you have an upcoming EGD/colonoscopy in November 2025. New prescriptions on discharge: Zofran 4 mg oral dissolvable tablets to be taken every 6 hours as needed for nausea/vomiting Discontinue Mounchuckyro on discharge, as this can potentially contribute to gastroparesis and GI symptoms. Additionally, he reported that the only blood pressure medication you are currently on is lisinopril 5 mg tablets. It is recommend that you HOLD your blood pressure medications until seen by your PCP for follow-up; your blood pressure and heart rate remained low despite being off all antihypertensive medications while in the hospital. Please plan to follow-up with your PCP in the next 7 to 10 days for a transitional care appointment. If you develop any new or worsening symptoms, such as inability keep down f luids, abdominal pain, nausea, vomiting, fever, or chills, please return to the emergency department immediately. It was a pleasure take care of you. Please reach out with any questions or concerns. Sincerely, The Hospital medicine team at [facility] Pending Studies at Discharge: No Stand-Alone Forms: My [facility], Smoking Cessation Medications and DC Order Prescriptions: New ondansetron 4 mg tablet,disintegrating 4 mg PO Q6H PRN (Reason: nausea and vomiting) Qty: 14 0RF Rx Instructions: Dissolve 1 tablet under your tongue every 6 hours as needed for nausea and vomiting Continued nitroglycerin [Nitrostat] 0.4 mg tablet, sublingual 0.4 mg sublingual Q5M PRN (Reason: chest pain) 30 Days Qty: 25 0RF diclofenac sodium [Voltaren Arthritis Pain] 1 % gel 2 g topical QID PRN (Reason: Pain) Rx Instructions: apply to single elbow, wrist or hand; for hand includes palm/fingers/back of hand urea 20 % cream 1 applic topical BID cholecalciferol (vitamin D3) 25 mcg (1,000 unit) capsule 25 mcg PO QAM phenazopyridine [Pyridium] 200 mg tablet 200 mg PO TID PRN (Reason: pain) Qty: 10 0RF ferrous sulfate [Feosol] 325 mg (65 mg iron) tablet 325 mg PO DAILY rosuvastatin 20 mg tablet 40 mg PO QPM multivitamin Tablet 1 tab PO DAILY (DME) Dexcom G7 Sensor Device See Rx Instructions .Route Qty: 9 3RF Rx Instructions: Change sensor every 10 days fluconazole [Diflucan] 200 mg tablet 200 mg PO DAILY Qty: 7 0RF insulin asp prt-insulin aspart [Novolog Mix 70-30FlexPen U-100] 100 unit/mL (70-30) insulin pen 50 unit subcut BID Qty: 90 3RF metformin 500 mg tablet 500 mg PO BID venlafaxine [Effexor XR] 150 mg capsule,extended release 24hr 150 mg PO QAM topiramate 50 mg tablet 50 mg PO BID (DME) Dexcom G7 Wire Inserter Misc See Rx Instructions .Route Qty: 1 0RF Rx Instructions: Use to monitor CGM readings tamsulosin [Flomax] 0.4 mg capsule 0.4 mg PO DAILY Qty: 90 3RF acetaminophen [Tylenol Extra Strength] 500 mg tablet 1,000 mg PO UD PRN (Reason: pain) Jardiance 25 mg tablet 25 mg PO QAM oxybutynin chloride 5 mg tablet extended release 24hr 5 mg PO DAILY Qty: 7 0RF oxycodone 5 mg tablet 5 mg PO Q6H PRN (Reason: pain) Qty: 5 0RF omeprazole 20 mg capsule,delayed release(DR/EC) 20 mg PO BID Rx Instructions: TAKE 1 CAPSULE BY MOUTH TWICE DAILY Held lisinopril 20 mg tablet 10 mg PO QAM Hold Instructions: Resume on 09/14/25. Hold until seen by PCP for follow-up Discontinued losartan 25 mg tablet 25 mg PO QAM metoprolol tartrate 25 mg tablet 25 mg PO BID Mounjaro 2.5 mg/0.5 mL pen injector 2.5 mg subcut Q7D Qty: 2 4RF Hold Instructions: Nausea/vomiting ondansetron 4 mg tablet,disintegrating 4 mg PO Q8H Qty: 20 0RF No Action methimazole 10 mg tablet 10 mg PO DAILY Qty: 30 2RF Discharge Orders: Discharge Order (Routine); Ordered 09/07/25 Ordered By: Guillermo Arias/Other Patient Handouts: Ondansetron Oral Tablet Admission Data Admit Date/Time: 09/06/25 15:57 Attending Provider: Scottie Medina Admit Provider: Tono Art Primary Care Provider: Vonda Anthony Other Providers: Tono Art; [facility] Other Interventions: Discharge Summary Assessment (RN) Last Done: 09/07/25 19:14 Hospital Stay Data Consultations 09/06/25 14:47 ED Decision to Admit Stat Diagnostic Imagining Performed 09/06/25 13:42 CT abd pelvis IV con only Stat Discharge Instructions Given to Patient (Per Discharging Provider) You are hospitalized at [facility] from 09/06 for 09/07 for intractable nausea vomiting and difficulty keeping down fluids. Imaging of your abdomen on arrival was reassuring; no small bowel obstruction. It is suspected that this was due to either an acute episode of gastritis, viral GI illness, or something called diabetic gastroparesis. It is also possible that this was multifactorial: You were recently started on a medication called Mounjaro, which can contribute to gastroparesis/nausea/vomiting. This coupled with a acute viral illness could have affected your stomach. You reported full resolution of your symptoms prior to discharge. Your vitals have remained stable over the course of your hospital stay, and you did not have an elevated white blood cell count to indicate signs of severe infection. For these reasons, we feel that you are safe to return home at this time with close PCP/GI follow-up. You reported that you have an upcoming EGD/colonoscopy in November 2025. New prescriptions on discharge: Zofran 4 mg oral dissolvable tablets to be taken every 6 hours as needed for nausea/vomiting Discontinue Mounjaro on discharge, as this can potentially contribute to gastroparesis and GI symptoms. Additionally, he reported that the only blood pressure medication you are currently on is lisinopril 5 mg tablets. It is recommend that you HOLD your blood pressure medications until seen by your PCP for follow-up; your blood pressure and heart rate remained low despite being off all antihypertensive medications while in the hospital. Please plan to follow-up with your PCP in the next 7 to 10 days for a transitional care appointment. If you develop any new or worsening symptoms, such as inability keep down fluids, abdominal pain, nausea, vomiting, fever, or chills, please return to the emergency department immediately. It was a pleasure take care of you. Please reach out with any questions or concerns. Sincerely, The Hospital medicine team at [facility] Total Time Total Time Spent Total Time Spent (In Minutes): 55 Coding [place] [address] INP/OBS DISCH >30 MIN Patient Type Established Medical Decision Making High Complexity Diagnoses Nausea and vomiting R11.2
== END 2025-09-07 20:35 | disposition home or self-care (01) ==
LOC: ED 10:08 → 3N 10:08 → SUATTDRO 15:57 → 3N 17:05